=== PATIENT | female | born 1950 | race Caucasian/White ===

== ENCOUNTER 2020-07-12 17:48 | Emergency (ER) | payer BC, SELFPAY ==
--- NOTE | ~2020-07-12 | XR_ITS ---
EXAMINATION: XR soft tissue neck INDICATION: Resolved choking, foreign body sensation TECHNIQUE: AP and lateral views of the neck soft tissues are obtained on three radiographs. COMPARISON: None available FINDINGS: The neck soft tissues are unremarkable. No radiopaque foreign body is identified. There is a partially imaged, large bore right internal jugular catheter. Mild cervical spondylosis is noted. IMPRESSION: 1. Unremarkable neck radiographs. Reviewed, dictated and finalized at location A.
[2020-07-12 17:56] VITALS: BP 139/81; PULSE 83; RESP 18; TEMP 36.6; O2SAT 98
--- NOTE | 2020-07-12 17:56 | ED.GENADULT ---
HPI - General Adult General Chief complaint: Skin/Abscess/Foreign Body Stated complaint: AMB Source: patient, EMS and RN notes reviewed Mode of arrival: ambulatory Limitations: no limitations History of Present Illness HPI narrative: Patient was eating chicken earlier this evening. [place] like it got stuck in her throat. She eventually was able to swallow it down. She is no longer feeling like she is choking. She thought something might have been stuck in her throat. Onset (ago): minute(s) (30) Radiation: non-radiation Severity: moderate Quality: aching and dull Pain Consistency: now resolved Exacerbating factors: none Associated symptoms: denies other symptoms Related Data Home Medications Medication Instructions Recorded Confirmed aspirin 81 mg PO DAILY 07/12/20 07/12/20 levothyroxine 100 mcg PO DAILY 07/12/20 07/12/20 Allergies Allergy/AdvReac Type Severity Reaction Status Date / Time Sulfa (Sulfonamide Allergy Unknown Verified 07/12/20 18:04 Antibiotics) Review of Systems Review of Systems: All systems reviewed & are unremarkable except as noted in HPI and below PMFSH Past Medical History Medical History (Updated 07/12/20 @ 18:07 by Brian Laughlin MD) Hypothyroidism Renal failure Social History Social History (Updated 07/12/20 @ 17:58 by Brian Laughlin MD) Smoking status: Former smoker Alcohol intake: former Substance use: never Exam Const: General: healthy appearing, no acute distress and alert Nutritional Appearance: well nourished and thin Orientation/consciousness: patient oriented x3 HENMT: Head: normal to inspection Ears: external ears normal General nose exam: Normal external nose present Face and sinus: normal facial exam Mouth: Yes Normal oral and palatal mucosa present and Yes moist mucous membranes Teeth and gingiva: abnormal tooth and associated gingiva ( edentulous) Throat: posterior oropharynx normal and uvula midline Eyes: Conjunctivae: conjunctivae normal Pupils: Equal, round and reactive pupils present EOM: EOMs intact bilaterally Neck: Neck: normal visual inspection Resp: Effort & Inspection: normal respiratory effort Auscultation: clear to auscultation bilaterally Cardio: Rate: regular rate Rhythm: regular rhythm GI: GI Palp: Yes Soft to palpation Auscultation: normal bowel sounds Back/Spine/Pelvis: Cervical Spine: cervical ROM normal Thoracic/Lumbar Spine: thoraco-lumbar ROM normal Skin: General skin exam: normal color Rashes: no rashes Neuro: General: patient oriented x3, moves all extremities and no focal motor deficits Speech: normal speech ( able to drink fluids in the ER.) Gait exam (Neuro): Normal gait present Extrem: General: normal to inspection and no clubbing, cyanosis or edema Psych: Appearance: grossly normal and well kempt Mental Status: mental status grossly normal Affect: normal affect Attitude: cooperative Thought content: Yes Normal thought content present Course Vital Signs Vital signs: Vital Signs Temperature 36.6 C 07/12/20 17:56 Pulse Rate 83 07/12/20 17:56 Respiratory Rate 18 07/12/20 17:56 Blood Pressure 139/81 07/12/20 17:56 Pulse Oximetry 98 07/12/20 17:56 Temperature 36.6 C 07/12/20 17:56 Pulse Rate 83 07/12/20 17:56 Respiratory Rate 18 07/12/20 17:56 Blood Pressure 139/81 07/12/20 17:56 Pulse Oximetry 98 07/12/20 17:56 Medical Decision Making Vital Signs Vital Signs: Vital Signs Temperature 36.6 C 07/12/20 17:56 Pulse Rate 83 07/12/20 17:56 Respiratory Rate 18 07/12/20 17:56 Blood Pressure 139/81 07/12/20 17:56 Pulse Oximetry 98 07/12/20 17:56 Temperature 36.6 C 07/12/20 17:56 Pulse Rate 83 07/12/20 17:56 Respiratory Rate 18 07/12/20 17:56 Blood Pressure 139/81 07/12/20 17:56 Pulse Oximetry 98 07/12/20 17:56 Discharge Plan Discharge Clinical Impression: Choking due to food (regurgitated) Qualifiers: Encoun
== END 2020-07-12 18:50 | disposition home or self-care (01) ==
PROVIDERS: Emergency Provider Emergency Medicine; PCP Internal Medicine Cardiovascular Disease
DX: R09.89 Other specified symptoms and signs involving the circulatory and respiratory systems (principal); T17.320A Food in larynx causing asphyxiation, initial encounter; E03.9 Hypothyroidism, unspecified; Z87.891 Personal history of nicotine dependence
CPT/HCPCS: 70360; 99282; 99283

== ENCOUNTER 2023-06-19 12:05 | Outpatient (CLI) | payer MEDICARE, MEDICAID, SELFPAY ==
--- NOTE | ~2023-06-19 | US_ITS ---
EXAMINATION: US carotid duplex BI DATE: 06/19/2023 12:38 INDICATION: Syncope TECHNIQUE: Grayscale, color Doppler, and pulsed Doppler images of the cervical carotid arteries were obtained. The degree of vessel stenosis is placed in one of the following categories: normal, <50%, 5 0-69%, >=70% but less than near-occlusion, near-occlusion, or total occlusion. Note that percent sten osis relative to normal distal artery lumen diameter is indirectly measured from velocity measurement s as described by Janusz, et al. Radiology 2003; 229:340-346. Notes: Normal: Peak systolic velocity <125 centimeters/sec and no plaque <50%. Peak systolic velocity <125 ( EDV <40; ICA/CCA PSV ratio <2.0; used these factors only a tandem lesions or low cardiac output or co ntralateral disease) 50-69 %: PSV 125-230 (EDV 40-100; ratio 2-4) >= 70% but less than near occlusion: PSV greater than 230 (EDV > 100; ratio> 4.0) Near Occlusion: PSV that is variable; markedly narrowed lumen Occlusion: Absent flow on color/spectral Doppler and no lumen on joy scale. COMPARISON: None. FINDINGS: RIGHT: The right common carotid artery (CCA) peak systolic velocity (PSV) is 94 cm/s. The right internal car otid artery (ICA) PSV is 80 cm/s. The right ICA end-diastolic velocity (EDV) is 23 cm/s. The right IC A/CCA PSV ratio is 0.85. The external carotid artery (ECA) PSV is 73 cm/s. There is antegrade flow in the right vertebral artery. LEFT: The left CCA PSV is 91 cm/s. The left ICA PSV is 72 cm/s. The left ICA EDV is 31 cm/s. The left ICA/ CCA PSV ratio is 0.8. The ECA PSV is 66 cm/s. There is antegrade flow in the left vertebral artery. IMPRESSION: 1. Less than 50% stenosis in the right internal carotid artery by sonographic criteria. 2. Less than 50% stenosis in the left internal carotid artery by sonographic criteria. Reviewed, dictated and finalized at location B. IMPRESSION: 1. Less than 50% stenosis in the right internal carotid artery by sonographic steven nicholas. 2. Less than 50% stenosis in the left internal carotid artery by sonographic osmany her.
== END 2023-06-19 12:06 | disposition home or self-care (01) ==
LOC: CHSIMG 12:10
PROVIDERS: PCP Physician Assistant; Visit Provider Physician Assistant
DX: R55 Syncope and collapse (principal); I65.23 Occlusion and stenosis of bilateral carotid arteries
CPT/HCPCS: 93880

== ENCOUNTER 2023-07-08 08:18 | Outpatient (CLI) | payer MEDICARE, MEDICAID, SELFPAY ==
--- NOTE | 2023-07-08 08:37 | ECHO_ITS ---
Patient Info Name: Farzaneh Lopez Age: 73 years : 1950 Gender: Female Ht: 67 in Wt: 163 lbs BSA: 1.88 m2 HR: 76 bpm BP: 136 / 70 mmHg Heart Rhythm: Sinus Rhythm Technical Quality: Good Exam Date: 07/08/2023 8:29 AM Exam Location: [facility] Patient Status: Outpatient Admit Date: 07/08/2023 Staff Ordering Physician: Raymond Tijerina MD Right Of Way Appraiser: Donald Lira RDCS Attending Provider: Raymond Tijerina MD Referring Physician: Lilliana OLMSTEAD; Exam Type: CA echo doppler color flow Study Info Indications - PVC, PALPATION Complete two-dimensional, color flow and Doppler transthoracic echocardiogram is performed. Summary 1. Complete two-dimensional, color flow and Doppler transthoracic echocardiogram is performed. 2. Left ventricular chamber dimension is normal. 3. Left ventricular systolic function is normal, estimated at 55-60%. 4. The left ventricular diastolic function is abnormal. 5. E/e' 20 is elevated. 6. Left atrial chamber dimension is moderately enlarged. 7. There is mild aortic valve sclerosis. 8. There is mild aortic valve regurgitation. 9. There is mild mitral valve regurgitation. 10. There is trace tricuspid valve regurgitation. 11. No pulmonary hypertension, estimated pulmonary arterial systolic pressure is 31 mmHg. Left Ventricle E/e' 20 is elevated. Left ventricular chamber dimension is normal. Left ventricular systolic function is normal, estimated at 55-60%. The left ventricular diastolic function is abnormal. Right Ventricle Right ventricular systolic function is normal and with normal TAPSE 2.8 cm. Right ventricular chamber dimension is normal. Left Atria Left atrial chamber dimension is moderately enlarged. Right Atria Right atrial chamber dimension is normal. Aortic Valve The aortic valve is trileaflet. There is mild aortic valve sclerosis. There is no aortic valve stenosis. There is mild aortic valve regurgitation. Pulmonic Valve There is no pulmonic regurgitation. Mitral Valve There is no mitral valve stenosis. There is mild mitral valve regurgitation. Tricuspid Valve There is trace tricuspid valve regurgitation. No pulmonary hypertension, estimated pulmonary arterial systolic pressure is 31 mmHg. Pericardium/Pleural There is no pericardial effusion. Inferior Vena Cava Normal inferior vena cava with >50% collapse upon inspiration consistent with normal right atrial pressure, 5 mmHg. Aorta The aortic root size at the sinus of Valsalva is normal. Left Ventricular Outflow Tract Name Value Normal LVOT 2D LVOT Diameter 1.7 cm LVOT Doppler LVOT Peak Velocity 133 cm/s LVOT Peak Gradient 7 mmHg LVOT Mean Gradient 4 mmHg LVOT VTI 41 cm LVOT VTI/AV VTI Ratio 0.8 LVOT Stroke Volume 93 ml Pulmonic Valve Name Value Normal RVOT Doppler
== END 2023-07-08 08:19 | disposition home or self-care (01) ==
LOC: CHSIMG 08:21
PROVIDERS: PCP Physician Assistant; Visit Provider Specialist
DX: I49.3 Ventricular premature depolarization (principal); R00.2 Palpitations; I47.20 Ventricular tachycardia, unspecified; I08.3 Combined rheumatic disorders of mitral, aortic and tricuspid valves
CPT/HCPCS: 93306

== ENCOUNTER 2024-02-04 09:07 | Outpatient (CLI) | payer MEDICARE, MEDICAID, SELFPAY | END 2024-02-04 09:08 | disposition home or self-care (01) | LOC: ANHBWCAUD 09:08 | PROVIDERS: PCP Physician Assistant; Visit Provider Otolaryngology | DX: H61.23 Impacted cerumen, bilateral (principal); H90.6 Mixed conductive and sensorineural hearing loss, bilateral; J30.2 Other seasonal allergic rhinitis | CPT/HCPCS: 92557; 92567 ==

== ENCOUNTER 2025-04-18 08:14 | Emergency (ER) | payer MEDICARE, MEDICAID, SELFPAY ==
[2025-04-18] VITALS (22 sets, daily range): BP systolic 115–163; BP diastolic 57–94; PULSE 69–89; RESP 14–18; TEMP 37–37.7; O2SAT 95–100
--- NOTE | ~2025-04-18 | CT_ITS ---
Non-contrast CT scan of the Abdomen and Pelvis Clinical indication: Abdominal pain Technique: 2.5 mm axial scans were obtained through the abdomen and pelvis without intravenous or or al contrast. Dose reduction technique was used on this scan by utilizing automated exposure control a nd iterative reconstruction technique. The dose-length product (DLP) was 310.59 mGy-cm. Findings: Images through the lung bases reveal no abnormalities. Negative kidneys are markedly atrophic with bilateral renal cysts. No stones or hydronephrosis. The liver, spleen, pancreas, gallbladder, and adrenals appear normal. There is no aortic aneurysm. There is no evidence of bowel obstruction. There is wall thickening of sigmoid colon mild pericolonic inflammatory change. Images through the pelvis were performed. There is no evidence of ascites or lymphadenopathy. Urinary bladder unremarkable. No pelvic mass seen. Impression: Infectious/inflammatory colitis of the sigmoid colon versus possibly diverticulitis. Markedly atrophic wilton kidneys. Reviewed, dictated and finalized at [facility]. Impression: Infectious/inflammatory colitis of the sigmoid colon versus possibly diverticul itis. Markedly atrophic wilton kidneys.
--- NOTE | ~2025-04-18 | XR_ITS ---
Clinical Indication: Abdominal pain PA and lateral views of the chest: Comparison: 04/27/2009 Findings: The lungs are clear, without evidence of focal consolidation or pleural effusion. Cardiome diastinal silhouette is within normal limits. Bones and soft tissues are unremarkable. Impression: Normal chest. Reviewed, dictated and finalized at location . Impression: Normal chest.
--- OUTSIDE RECORDS SUMMARY | 2025-04-18 08:22 | XMS_ITS | Encounter Summary ---
Author Organization [facility] Address [facility] [place] [address] Care Team Providers Care Reclamation Engineer Name Role Phone Chalo Thakkar Unavailable [phone] Tereso Donaldson MD Primary Care Provider [phone] Leona Godwin MD Unavailable Unavailabl e Cheko Pulido MD Unavailable [phone] Rigoberto Chinchilla MD Unavailable [phone] Mariluz Owens ANP-BC Unavailable [phone] Jayla RidleyC Unavailable [phone] Encounter Details Date Type Department Care Team (Late st Contact Info) Description 06/08/2022 Results Notification [facility] [address] [place] [address] Ricardo Villeda MD Social History Tobacco Use Types Packs/Day Years Used Date Smoking Tobacco: Former Cigarettes Smokeless Tobacco: Former Comments:quit 50 years ago Alcohol Use Standard Drinks/Week Comments Yes 0 (1 standard drink = 0.6 oz pur e alcohol) Comments No Sex and Gender Information Value Date Recorded Sex Assigned at Female 02/23/2020 9:37 PM CDT Legal Sex Female 7:57 PM CDT Gender Identity Female 02/23/2020 9:37 PM CDT Sexual Orientation Straight 02/23/2020 9: 37 PM CDT COVID-19 Exposure Response Date Recorded In the last 10 days, have yo u been in contact with someone who was confirmed or suspected to have Coronavirus/COVID-19? Unable to assess 05/23/2022 3:02 PM CDT documented as of this encounter Functional Status * RETIRED Are you deaf or do you have serious difficulty hearing Answer Date of Assessment Author Status No 08/10/2020 8:08 AM CLIENT DELIVERY MANAGER Activ e * RETIRED Are you blind or do you have serious difficulty seeing, even when wearing glasses? Answer Date of Assessment Author Status 05/10/2020 8:42 PM CDT Activ e * Do you have serious difficulty walking or climbing stairs? Answer Date of Assessment Author Status No 05/10/2020 8:42 PM CDT John Garcia R N Active * Do you have difficulty dressing or bathing? Answer Date of Assessment Author Status No 05/10/2020 8:42 PM CDT John Garcia R N Active * Because of a physical, mental, or emotional condition, do you have difficulty doing errands alone such as visiting a doctor's office or shopping? Answer Date of Assessment Author Status No 05/10/2020 8:42 PM CDT John Garcia R N Active documented as of this encounter Mental Status * Because of a physical, mental, or emotional condition, do you have serious difficulty concentrating, remembering, or making decisions? Answer Entry Date Author Status No 05/10/2020 8:42 PM CDT John Garcia R N Active documented in this encounter Progress Notes * Ricardo Villeda MD - 06/08/2022 8:24 PM CDT Images from the original note were not included. Contacted by [employer] about recurrent Non-sustained ventricular tachycardia (NSVT) Patient not on beta amelia/CCB/antiarrhythmics Structurally normal heart otherwise Not seen by EP - awaiting Cheko Pulido MD consultation Due to high burden, I have advised the monitoring company to direct the patient to nearest emergency room Ricardo Villeda MD Clinical Cardiac Factory Engineer [facility] documented in this encounter Plan of Treatment Not on file documented as of this encounter Visit Diagnoses Not on filedocumented in this encounter Additional Health Concerns Infection Onset Date Last Indicated Resolved Time COVID-19 Rule Out 10/10/2023 10/10/2023 10/10/2023 12:25 PM CLIENT DELIVERY MANAGER documented as of this encounter Care Teams Reclamation Engineer Relationship Specialty Start Date End Date Tereso Donaldson MD [address] [place] [phone] PCP - General FAMILY PRACTICE 05/18/22 Chalo Thakkar PA [address] [place] [phone] Physician Correspondence School Instructor PHYSICIAN MOBILE HOMES REPAIRER 10/11/21 Leona Godwin MD [address] [place] [phone] Consulting Physician CARDIOVASCULAR DISEASE 05/18/2205/20 Cheko Pulido MD [address] [place] [address] EP Wallpaperer CLINICAL CARDIAC ELECTROPHYSIOLOGY 05/30/22 Rigoberto Chinchilla MD [address] [place] [address] INTERVENTIONAL CARDIOLOGY 01/23/2412/06 Mariluz Owens ANP- [address] [place] [phone] Nurse Practitioner NURSE PRACTITIONER ADULT HEALTH 01/23/24 Jayla Ridley PA-C [address] [place] [address] Referring Physician PHYSICIAN MOBILE HOMES REPAIRER 08/29/24 documented as of this encounter
--- OUTSIDE RECORDS SUMMARY | 2025-04-18 08:24 | XMS_ITS | Clinical Summary ---
Author Organization [facility] Address [address] [facility], [address] [phone] Phone Care Team Providers Care Auto Seat Cover Installer Name Role Phone Natty Aviles MD Primary Care Provider [phone] Allergies Active Allergy Reactions Criticality Noted Date Comments Nylon Itching 04/08/2018 Sulfa Antibiotics Itching 04/08/2018 Medications fluticasone (FLONASE) 50 MCG/ACT Suspension 1 02/11/2018 Active levothyroxine (SYNTHROID) 112 MCG Tablet 1 04/05/2018 Active metoprolol tartrate (LOPRESSOR) 50 MG Tablet 1 02/11/2018 Active Active Problems Problem Noted Date Diagnosed Date Retracted ear drum, right 04/08/2018 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, right 04/08/2018 Tinnitus of right ear 04/08/2018 Chronic eczematous otitis externa of left ear Acquired stenosis of external ear canal, left Malocclusion of teeth 04/08/2018 TMJ (temporomandibular joint syndrome) 8 Other complicated headache syndrome 04/08/2018 Social History Tobacco Use Types Packs/Day Years Used Date Smoking Tobacco: Former Cigarettes 0.3 5 Smokeless Tobacco: Never Alcohol Use Standard Drinks/Week Comments No 0 (1 standard drink = 0.6 oz pur e alcohol) Comments Unknown Sex and Gender Information Value Date Recorded Sex Assigned at Not on file Legal Sex Female 3:00 PM CDT Gender Identity Not on file Sexual Orientation Not on file Occupation Industry Job Start Date Job End Date unemployed Not on file Not on file Not on file Last Filed Vital Signs Vital Sign Reading Time Taken Comments Blood Pressure 128/84 04/08/2018 2:33 PM CDT Pulse 78 04/08/2018 2:33 PM CDT Temperature - - Respiratory Rate 14 04/08/2018 2:33 PM CDT Oxygen Saturation 98% 04/08/2018 2:33 PM CDT Inhaled Oxygen Concentration - - Weight 89.4 kg (197 lb) 04/08/2018 2:33 PM CDT Height 172.7 cm (5' 8) 04/08/2018 2:33 PM CDT Body Mass Index 29.95 04/08/2018 2:33 PM CDT Plan of Treatment Health Maintenance Due Date Last Done Comments Hepatitis C Virus (HCV) Screening 1950 TdaP Immunization 1950 Cologuard 02/01/1997 Colonoscopy 02/01/1997 Colorectal Cancer Screening 02/01/1997 Immunochemical Fecal Occult Blood 02/01/1997 Pneumococcal Immunization (5 0+ years) (1 of 1 - PCV) 02/01/2002 Zoster Immunization (1 of 2) 02/01/2002 SARS-COV-2 Immunization (2 - season) 2024 12/29/2020 Influenza Immunization (#1) 2025 Respiratory Syncytial Virus (RSV) Immunization (Adult) (1 - 1-dose 75+ series) 02/01/2027 Hepatitis B Immunization Aged Out No longer eligible based on patient's age to complete this topic Human Papillomavirus (HPV) Immunization Aged Out No longer eligible b ased on patient's age to complete this topic Meningococcal Immunization (ACWY) Aged Out No longer eligible based on patient's age to complete this topic Rotavirus Immunization Aged Out No lo nger eligible based on patient's age to complete this topic Insurance [facility] Care Teams Auto Seat Cover Installer Relationship Specialty Start Date End Date Natty Aviles MD [address] [place] [address] PCP - General Family Medicine 04/08/18
--- OUTSIDE RECORDS SUMMARY | 2025-04-18 08:24 | XMS_ITS | Encounter Summary ---
Author Organization [facility] Address [address] [place] [address] Care Team Providers Care Dehydrogenation Converter Helper Name Role Phone Chalo Thakkar Unavailable [phone] Tereso Donaldson MD Primary Care Provider [phone] Leona Godwin MD Unavailable Unavailabl e Cheko Pulido MD Unavailable [phone] Rigoberto Chinchilla MD Unavailable [phone] Mariluz Owens ANP-BC Unavailable [phone] Jayla Ridley PA-C Unavailable [phone] Encounter Details Date Type Department Care Team (Late st Contact Info) Description 08/31/[address] [facility] Lab Pre/Post [address] [place], [place] [phone] New Villalobos MD [address] [facility], [address] [place] [address] Social History Tobacco Use Types Packs/Day Years [...] Recorded In the last 10 days, have santhosh u been in contact with someone who was confirmed or suspected to have Coronavirus/COVID-19? No / Unsure 09/03/2022 3:54 PM BLOOD TESTER FOWL documented as of this encounter Functional Status * RETIRED Are you deaf or do you have serious difficulty hearing Answer Date of Assessment Author Status No 08/10/2020 8:08 AM BLOOD TESTER FOWL Activ e * RETIRED Are you blind [...] Status No 05/10/2020 8:42 PM CDT John Garcia, R N Active documented in this encounter Plan of Treatment Not on file documented as of this encounter Visit Diagnoses Not on filedocumented in this encounter Additional Health Concerns Infection Onset Date Last Indicated Resolved Time COVID-19 Rule Out 10/10/2023 10/10/2023 10/10/2023 12:25 PM BLOOD TESTER FOWL documented as of this encounter Care Teams Dehydrogenation Converter Helper Relationship Specialty Start Date End Date Tereso Donaldson MD [address] [place] [phone] PCP - General FAMILY PRACTICE 05/18/22 Chalo Thakkar PA [address] [place] [phone] Physician Wet Wash Assembler PHYSICIAN CONTRACT ENGINEER 10/11/21 Leona Godwin MD [address] [place] [phone] Consulting Physician CARDIOVASCULAR DISEASE 05/18/2205/20 Cheko Pulido MD [address] [place] [address] EP General Partner CLINICAL CARDIAC ELECTROPHYSIOLOGY 05/30/22 Rigoberto Chinchilla MD [address] [place] [phone] INTERVENTIONAL CARDIOLOGY 01/23/2412/06 Mariluz Owens [facility]- [address] [place] [phone] Nurse Practitioner NURSE PRACTITIONER ADULT HEALTH 01/23/24 Jayla Ridley PA-C [address] [place] [phone] Referring Physician PHYSICIAN CONTRACT ENGINEER 08/29/24 documented as of this encounter
--- OUTSIDE RECORDS SUMMARY | 2025-04-18 08:24 | XMS_ITS | Clinical Summary ---
Author Organization [facility] Address [address] [place] [address] Care Team Providers Care Burnt Lime Drawer Name Role Phone Chalo Larios Unavailable [phone] Tereso Donaldson MD Primary Care Provider [phone] Cheko Pulido MD Unavailable [phone] Mariluz Owens ANP-BC Unavailable +- [phone] Jayla Ridley PA-C Unavailable [phone] Allergies Active Allergy Reactions Criticality Noted Date Comments Nylon Itching 04/08/2018 Penicillins Rash Low 05/11/2020 Sulfa Antibiotics Rash,Itching Low 04/08/2018 Suture Material Rash Low 08/05/2020 NYLON Medications lidocaine-prilo abad cream Apply topically as needed. 1 Active levothyroxine (SYNTHROID) 137 MCG tablet Take 1 tablet (137 mcg total) by mouth daily. 3 Active midodrine (PROAMATINE) 5 MG tablet Take 1 tablet (5 mg total) by mouth daily. 4 Active NEPHRO-STORM 0.8 MG Tab tablet Take 1 tablet by mouth daily. 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 ESRD (end stage renal disease) ([facility]) 05/10/2020 Hyperparathyroidism due to e nd stage renal disease on dialysis ([facility]) 04/27/2020 Acquired hypothyroidism 04/27/2020 Elevated troponin 02/23/2020 Acute renal failure (ARF) 02/23/2020 Palpitations 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HHS/HCC) Lupus Mitral regurgitation Encounters Date Type Department Care Team Description 02/16/2025 11:57 AM CDT - 02/16/2025 12:29 PM CDT Emergency [facility] [address] [place] [address] Jin Alejandro FNP Ear Problem Discharge Disposition: Home or Self Care (Routine Discharge) 02/16/2025 Travel 02/06/2025 10:45 AM CDT - 02/06/2025 12:49 PM CDT Emergency [facility] [address] [place] [address] Mert Cifuentes MD Hearing Problem Discharge Disposition: Home or Self Care (Routine Discharge) 02/06/2025 Travel from Last 3 Months Family History Medical History Relation Comments Heart Disease Father Breast Cancer Maternal Aunt Breast Problems Mother Heart Disease Mother Breast Cancer Paternal Aunt Relation Status Comments Father Maternal Aunt Alive Maternal Grandfather Maternal Grandmother Mother Paternal Aunt Alive Paternal Grandfather Paternal Grandmother Social History Tobacco Use Types Packs/Day Years Used Date Smoking Tobacco: Former Cigarettes Smokeless Tobacco: Former Tobacco Cessation:Counseling Given: Not Answered Comments:quit 50 years ago Alcohol Use Standard Drinks/Week Comments Yes 0 (1 standard drink = 0.6 oz pur e alcohol) Comments No Sex and Gender Information Value Date Recorded Sex Assigned at Female 02/23/2020 9:37 PM CDT Legal Sex Female 7:57 PM CDT Gender Identity Female 02/23/2020 9:37 PM CDT Sexual Orientation Straight 02/23/2020 9: 37 PM CDT Last Filed Vital Signs Vital Sign Reading Time Taken Comments Blood Pressure 161/79 02/16/2025 11:54 AM CDT Pulse 104 02/16/2025 11:54 AM CDT Temperature 36.6 C (97.9 F) 02/16/2025 11:54 AM CDT Respiratory Rate 20 02/16/2025 11:5 4 AM CDT Oxygen Saturation 98% 02/16/2025 11: 54 AM CDT Inhaled Oxygen Concentration - - Weight 76.2 kg (167 lb 15.9 oz) 025 11:54 AM CDT Height 171.5 cm (5' 7.5) 02/06/2025 10 :41 AM CDT Body Mass Index 25.92 02/06/2025 10:41 AM CDT Plan of Treatment Health Maintenance Due Date Last Done Comments Hepatitis C 02/01/1970 DTaP, Tdap and Td Vaccines ( 1 - Tdap) 02/01/1971 Pneumococcal Vaccine: 50+ Years (1 of 2 - PCV) 02/01/1971 Zoster Vaccines (1 of 2) 02/01/2002 RSV Immunization or 60+ Years (1 - Risk 60-74 years 1-dose series) 2012 Annual Medicare Wellness Visit 02/01/2017 COVID-19 Vaccine (3 - 2023-2 5 season) 2024 08/25/2022, 12/29/2020 Mammogram Screening 08/15/2024 08/15/2022 Colorectal Cancer Screening Colonoscopy (10 Years) 09/08/2031 09/08/2021, 09/08/2021 Colorectal Cancer Screening FIT/FOBT (1 Year) Discontinued 04/22/2021 Dexa Scan (General) Completed 08/15/2022 Meningococcal B Vaccine Aged Out No l onger eligible based on patient's age to complete this topic Meningococcal Vaccine Aged Out No brock jacob eligible based on patient's age to complete this topic RSV Immunizations Under 20 Months Aged Out No longer eligible based on patient's age to complete this topic Medical Devices Implanted Type Area Cooler Tender Device Identifier Shelf Expiration Date Model / Serial / Lot Cook Tornado Left Forearm Vein-12/19/2020 Implanted:Qty: 1 on 12/19/2020 by Rafa Villagomez MD Coil Arm [employer] 08/11/2024 [id number] / / [id number] Cook Tornado Left Forearm- 021 Implanted:Qty: 1 on 12/19/2020 by Rafa Villagomez MD Coil Left: Arm [employer] 04/17/2022 [id number] / / [id number] Cook Tornado Left Forearm Vein-12/19/2020 Implanted:Qty: 1 on 12/19/2020 by Rafa Villagomez MD Coil Left: Arm [employer] 08/18/2024 [id number] / / [id number] Daron Torando Left Forearm Vein-12/19/2020 Implanted:Qty: 1 on 12/19/2020 by Rafa Villagomez MD Coil Left: Arm [employer] - A Abyz 06/24/2023 [id number] / / [id number] Procedures Procedure Name Priority Date/Time Associated Diagnosis Comments BONE DENSITY/DEXA Routine 08/15/2022 7:0 7 PM MEASUREMENT ANALYST Postmenopausal MG SCREENING W BRANDEN BRYANT DIGI Routine 08/15/2022 3:04 PM MEASUREMENT ANALYST Visit for screening mammogram COLONOSCOPY 09/08/2021 10:19 AM MEASUREMENT ANALYST OCCULT BLOOD, FECES STAT 04/22/2021 1 :32 PM CDT from Last 3 Months or Most Recently Relevant to Health Maintenance Results * BONE DENSITY/DEXA (08/15/2022 7:07 PM MEASUREMENT ANALYST) Anatomical Region Laterality Modality Bone Bone Density 08/15/2022 7:07 PM MEASUREMENT ANALYST Impressions 08/15/2022 7:08 PM MEASUREMENT ANALYST Impression: Osteoporosis. Ordered By: CHALO LARIOS Interpreted By: Malvin Hart DO, 08/15/2022 7:07 PM Narrative 08/15/2022 7:08 PM MEASUREMENT ANALYST Examination: DEXA Bone densitometry Clinical history: Postmenopausal. Osteoporosis screening. Technique: DEXA bone mineral density evaluation was performed in the AP projection over the lumbar spine and over both hips in the AP projection utilizing standard imaging techniques. COMPARISON: None. Assessment: The BMD measured at the AP spine L1-L4 is 0.826 g/cm2 with a T-score of -2.0 and a Z-Score of 0.1. The BMD of the total left femur is 0.588 g/cm2, the femoral neck measures 0.546 g/cm2, with a T-score of -2.9 and a Z-Score of -1.4. The BMD of the total right femur is 0.649 g/cm2, the femoral neck measures 0.612 g/cm2, with a T-score of -2.4 and a Z-Score of -0.9. Based upon the above measurements, the patient has osteoporosis. The patient has osteoporosis. The fracture risk is high. Based on these results, a followup exam is recommended in 2 years or sooner if clinically indicated. Procedure Note Malvin Hart DO - 08/15/2022 Examination: DEXA Bone densitometry Clinical history: Postmenopausal. Osteoporosis screening. Technique: DEXA bone mineral density evaluation was performed in the APprojection over the lumbar spine and over both hips in the AP projectionutilizing standard imaging techniques. COMPARISON: None. Assessment: The BMD measured at the AP spine L1-L4 is 0.826 g/cm2 with a T-score of-2.0 and a Z-Score of 0.1. The BMD of the total left femur is 0.588 g/cm2, the femoral neck measures0.546 g/cm2, with a T-score of -2.9 and a Z-Score of -1.4. The BMD of the total right femur is 0.649 g/cm2, the femoral neck measures0.612 g/cm2, with a T-score of -2.4 and a Z-Score of -0.9. Based upon the above measurements, the patient has osteoporosis. The patient has osteoporosis. The fracture risk is high. Based on these results, a followup exam is recommended in 2 years orsooner if clinically indicated. Impression: Osteoporosis. Ordered By: CHALO LARIOS Interpreted By: Malvin Hart DO, 08/15/2022 7:07 PM us Chalo COSME DEXA Final Result * MG SCREENING W BRANDEN BRYANT DIGI (08/15/2022 3:04 PM MEASUREMENT ANALYST) Anatomical Region Laterality Modality Breast Bilateral Mammography 08/20/2022 4:46 PM MEASUREMENT ANALYST Narrative 08/20/2022 4:48 PM MEASUREMENT ANALYST Examination: Digital screening mammogram with CAD. Clinical history: Asymptomatic patient presents for routine screening. Comparison: 10/03/2015. Technique: Bilateral digital mammograms. The exam was interpreted with the use of a computer-aided detection (CAD) system. Additional 3-D tomosynthesis images were acquired. Tissue density: The breast tissue is heterogeneously dense. Findings: The breast tissue is heterogeneously dense. The dense tissue may obscure some lesions mammographically. Benign-appearing calcification noted. No suspicious mass, microcalcification or area of architectural distortion can be identified. From a mammographic standpoint, routine followup in one year would seem adequate. IMPRESSION: No suspicious change since the previous exams. Recommendation: 1: Routine Screening Bilateral in 1 Year Assessment: ACR BI-RADS 2 - BENIGN FINDING(S) Ordered By: CHALO LARIOS Interpreted By: Keshav Banks MD, 08/20/2022 4:46 PM Chalo Larios PA MAMMO Final Result * COLONOSCOPY (09/08/2021 10:19 AM MEASUREMENT ANALYST) Yusuf Bill MD GI PROCEDURE ORDERABLES Final Result * OCCULT BLOOD, FECES (04/22/2021 1:32 PM CDT) OCCULT BLOOD FECAL NEGATIVE NEGATIVE 04/22/2021 1:43 PM CDT [facility] STOOL SPECIMEN / Unknown 04/22/2021 1:32 PM CDT Dejon Cheung MD BODY FLUIDS AND STOOLS ORDERABL ES Final Result [facility] [address] [place] [address], from Last 3 Months or Most Recently Relevant to Health Maintenance Insurance Member Subscriber Plan / Payer (Ef fective 2022-Present) Name:Farzaneh Lopez Relation to Subscriber:Self Name:Jessica Farzaneh Nikki Payer ID:Not on file Group ID:Not on file Type:Not on file Address: [address] [facility] MEDICAID Advance Directives * Full Code (Latest Code Status on File) Date Activated Date Inactivated Comments 12/25/2024 3:56 PM 12/27/2024 2:26 PM * Full Code Date Activated Date Inactivated Comments 05/11/2020 2:23 AM 05/11/2020 5:03 PM * Full Code Date Activated Date Inactivated Comments 02/23/2020 5:34 PM 03/03/2020 7:30 PM Care Teams Burnt Lime Drawer Relationship Specialty Start Date End Date Tereso Donaldson MD [address] [place] [phone] PCP - General FAMILY PRACTICE 05/18/22 Chalo Larios PA [address] [place] [phone] Physician Title Clerk Automobile PHYSICIAN CEMENT CONTRACTOR 10/11/21 Cheko Pulido MD [address] [place] [address] EP Upsetter Setter Up CLINICAL CARDIAC ELECTROPHYSIOLOGY 05/30/22 Mariluz Owens, [facility]- [address] [place] [id number] Nurse Practitioner NURSE PRACTITIONER ADULT HEALTH 01/23/24 Jayla Ridlye PA-C [address] [place] [address] Referring Physician PHYSICIAN CEMENT CONTRACTOR 08/29/24
--- NOTE | 2025-04-18 08:40 | ECG_ITS ---
Test Date: 2025-04-18 08:51:53 Measurements Intervals [place] Rate: 71 P: 30 ME: 144 QRS: -16 QRSD: 78 T: 37 QT: 372 QTc: 406 Interpretive Statements SINUS RHYTHM MINIMAL ST DEPRESSION [0.025+ mV ST DEPRESSION] ABNORMAL ECG Electronically Signed On 04-18-2025 11:38:11 CDT by Rogelio Velasquez M.D.
--- NOTE | 2025-04-18 08:40 | ED.ABDPAIN ---
HPI - Abdominal Pain General Chief Complaint: Abdominal Pain Stated Complaint: abdominal cramping Time Seen by Provider: 04/18/25 08:24 Source: patient and family Mode of arrival: ambulatory Limitations: no limitations History of Present Illness HPI narrative: patient is a 75-year-old female with lower abdominal pain for the past few days. Patient is a poor historian. She said it is cramping and bloating sensation. She is end-stage renal disease with hemodialysis 3 times a week. She had a colonoscopy in February of 2025 that showed 2 polyps that were removed. She also had some dark stool after taking Pepto-Bismol once this past week as well. patient has chronic stool changes to include mucus. No nausea vomiting or diarrhea. She does make urine. MD elicited complaint: abdominal pain Pertinent past history: other ( Colon polyps 2024, end-stage renal disease/ hemodialysis 3 times a week) Onset (ago): day(s) ( 3) Pain Consistency: intermittent Location: RLQ and suprapubic Severity: mild Pain scale (0-10): 3 Quality: cramping and fullness Radiation: none Migration to: no migration Exacerbating factors: nothing Relieving factors: nothing Context: confirms other ( patient has lower abdominal pain for the past few days with associated chronic stool changes) Associated symptoms: hematochezia ( Small amount x1 this past week) Treatments prior to arrival: other ( none) Related Data Home Medications ?Medication ?Instructions ?Recorded ?Confirmed ?Last Taken ?Type aspirin 81 mg tablet,delayed 81 mg PO DAILY 07/12/20 02/23/25 Unknown History release calcium carbonate (Tums) 200 mg PO BID 01/14/24 02/23/25 Unknown History levothyroxine 100 mcg tablet 125 mcg PO DAILY 01/14/24 02/23/25 Unknown History Allergies Allergy/AdvReac Type Severity Reaction Status Date / Time nylon Allergy Intermediate Rash Verified 04/18/25 08:31 penicillin G Allergy Intermediate Rash Verified 04/18/25 08:31 Sulfa (Sulfonamide Allergy Rash Verified 04/18/25 08:31 Antibiotics) Review of Systems Review of Systems: All systems reviewed & are unremarkable except as noted in HPI and below Constitutional: Constitutional: Reports no additional constitutional complaints Eyes: Eyes: Reports no additional eye complaints ENT: Reports system reviewed and no additional complaints, except as documented Cardiovascular: Cardiovascular: Reports no additional cardiovascular complaints Respiratory: Respiratory: Reports no additional respiratory complaints Gastrointestinal: Gastrointestinal: Reports no additional gastrointestinal complaints Genitourinary: Genitourinary: Reports no additional female genitourinary complaints Musculoskeletal: Musculoskeletal: Reports no additional musculoskeletal complaints Integumentary/Breasts: Skin/Breast: Reports system reviewed and no additional complaints, except as docu Neurologic: Reports system reviewed and no additional complaints, except as documented Psychiatric: Psychiatric: Reports no additional psychiatric complaints Endocrine: Endocrine: Reports no additional endocrine complaints Hematologic/Lymphatic: Hematologic/Lymphatic: Reports no additional hematologic/lymphatic complaints Allergic/Immunologic: Allergic/Immunologic: Reports no additional allergic/immunologic complaints [facility] Past Medical History Medical History Hypothyroidism Renal failure Family History Family History Father Hypertension Heart disease Mother Carcinoma of colon Hypertension Social History Social History Social History: Caffeine-daily Smoking status: Former smoker Smoking end date: 10/07/08 Alcohol intake: current Alcohol use details: Occasionally Substance use: never Substance use type: does not use Do You Feel Safe in your Home?: Yes Lack of Transportation: No Lack of Food: Never True Current Housing: Decline to Answer Concerned About Future Housing: Decline to Answer Difficulty Paying Gas/Electric Bills: Decline to Answer Difficulty Paying for Meds: Decline to Answer Currently Unemployed: Decline to Answer Education: Decline to Answer Difficulty w/ Childcare or Family Care: Decline to Answer Exam Const: General: healthy appearing Nutritional Appearance: well nourished Orientation/consciousness: patient oriented x3 Limitations: no limitations Other: patient has baseline tangential type thinking but remembers her past history and events; baseline mental status per family HENMT: Head: normal to inspection Ears: external ears normal Face/Nose/Sinus: Normal external nose present Eyes: Conjunctivae: conjunctivae normal Pupils: Equal, round and reactive pupils present EOM: EOMs intact bilaterally Neck: Neck: normal visual inspection Chest: Chest palpation & inspection: normal inspection of the chest Resp: Effort & Inspection: normal respiratory effort and not labored Auscultation: clear to auscultation bilaterally and no crackles Cardio: Rate: regular rate Rhythm: regular rhythm Heart sounds: no murmurs GI: Inspection: non-distended GI Palp: Yes Soft to palpation and Yes Tenderness to palpation present (GI) ( suprapubic and right lower quadrant) Auscultation: normal bowel sounds : General: No bladder normal to palpation ( tender) Back/Spine/Pelvis: Back: no CVA tenderness Skin: General skin exam: normal color Rashes: no rashes Wounds: no wounds Neuro: General: patient oriented x3, moves all extremities, no meningeal signs, no focal motor deficits and CN's II-XI intact bilaterally Cranial nerves: Yes Nystagmus not present Speech: normal speech Gait exam (Neuro): Normal gait present Other: fast exam negative Extrem: General: normal to inspection Psych: Mental Status: mental status grossly normal Affect: normal affect Attitude: cooperative Course Vital Signs Vital signs: Vital Signs Temperature 37.7 C H 04/18/25 08:14 Pulse Rate 82 04/18/25 08:14 Respiratory Rate 16 04/18/25 08:14 Blood Pressure 136/81 04/18/25 08:14 Pulse Oximetry 96 04/18/25 08:14 Oxygen Delivery Room Air 04/18/25 08:14 Temperature 37.7 C H 04/18/25 08:14 Pulse Rate 71 04/18/25 10:16 Respiratory Rate 14 04/18/25 10:16 Blood Pressure 146/62 H 04/18/25 10:16 Pulse Oximetry 97 04/18/25 10:16 Oxygen Delivery Room Air 04/18/25 08:14 MDM - Abdominal Pain MDM Narrative Medical decision making narrative: patient is a 75-year-old female with abdominal pain for the past few days. We will do an abdominal workup at this time. Lab Data Attestation: I reviewed the patient's lab results. 04/18/25 08:49 04/18/25 08:49 Labs: Lab Results 04/18/25 Range/Units 08:49 WBC 8.3 (4.8-10.8) K/mm3 RBC 3.71 L (4.20-5.40) M/mm3 Hgb 10.8 L (11.7-13.8) g/dL Hct 35.2 (35.0-42.0) % MCV 94.9 (78.0-102.0) fL MCH 29.1 (27.0-31.0) pg MCHC 30.7 L (32-36) g/dL RDW 15.1 H (11.6-14.4) % Plt Count 133 L (150-420) K/mm3 MPV 10.9 (9.2-11.8) fl Immature Gran % (Auto) 0.5 H (0.0-0.0) % Neut % (Auto) 76.1 H (50.0-70.0) % Lymph % (Auto) 12.7 L (18.0-42.0) % [place] % (Auto) 9.1 (2.0-11.0) % Eos % (Auto) 1.2 (1.0-6.0) % Baso % (Auto) 0.4 (0.0-1.0) % Lymph # (Auto) 1.06 L (1.10-4.50) K/mm3 [place] # (Auto) 0.76 (0.10-0.90) K/mm3 Eos # (Auto) 0.10 (0.02-0.50) K/mm3 Baso # (Auto) 0.03 (0.00-0.10) K/mm3 Abs Immat Gran (auto) 0.04 H (0.00-0.00) K/mm3 Absolute Neuts (auto) 6.33 (1.70-7.20) K/mm3 Absolute Nucleated RBC 0.00 (0.00-0.00) K/mm3 Nucleated RBC % 0.0 (0-0.0) % PT 10.4 (9.50-12.1) Seconds INR 0.9 APTT 27.6 (23.9-30.70) Sec Sodium 138 (137-145) mmol/L Potassium 3.7 (3.4-5.0) mmol/L Chloride 104 (98-107) mmol/L Carbon Dioxide 29 (22-30) mmol/L Anion Gap 5 (4-12) mmol/L BUN 26 H (7-17) mg/dL Creatinine 7.40 H (0.7-1.0) mg/dL Estim Creat Clear Calc Not Reportable Estimated GFR 5 L (59 - ) Glucose 92 (65-110) mg/dL Calculated Osmolality 290 (285-295) mOsm/kg Calcium 8.5 (8.4-10.2) mg/dL Total Bilirubin 0.5 (0.2-1.3) mg/dL AST 25 (14-36) U/L ALT 11 (6-35) U/L Alkaline Phosphatase 106 (38-126) U/L Troponin I 0.031 (0.000-0.034) ng/mL Total Protein 5.9 L (6.3-8.2) g/dL Albumin 3.3 L (3.5-5.1) g/dL Lipase 52 (23-300) U/L Imaging Data Attestation: I personally reviewed and interpreted this imaging study as follows: Radiologist's impression: ITS Impressions Abdomen/Pelvis CT 04/18/25 10:22 Impression: Infectious/inflammatory colitis of the sigmoid colon versus possibly diverticulitis. Markedly atrophic [place] kidneys. Chest X-Ray 04/18/25 10:23 Impression: Normal chest. ECG Data EKG #1: Attestation: I personally reviewed and interpreted this ECG as follows: ECG completion date: 04/18/25 ECG completion time: 09:00 normal rate, sinus rhythm, no ectopy, non-specific ST changes, ST depression, normal QRS, normal QT and left axis Discharge Plan Discharge Clinical Impression: Diverticulitis Renal failure Qualifiers: Renal failure chronicity: chronic Chronic kidney disease stage: on chronic dialysis Qualified Code(s): N18.6 - End stage renal disease Patient Disposition: Home Condition: Stable Instructions: Antibiotic Form, Diverticulitis (ED) Patient Language: Cambodian Prescriptions: New metronidazole 500 mg tablet 500 mg PO TID 10 Days Qty: 30 0RF ciprofloxacin HCl [Cipro] 250 mg tablet 250 mg PO BID 7 Days Qty: 14 0RF No Action aspirin 81 mg Tablet,Delayed Release (Dr/Ec) 81 mg PO DAILY levothyroxine 100 mcg tablet 125 mcg PO DAILY calcium carbonate [Tums] 200 mg calcium (500 mg) tablet,chewable 200 mg PO BID Follow-up/Referrals: Ariane,YADIRA Isabel [Primary Care Provider] - Time of Disposition: 10:26
[2025-04-18 08:54] LABS: Hematocrit 35.2 % (35.0-42.0); Hemoglobin 10.8 g/dL (11.7-13.8); Immature Granulocyte Percent A 0.5 % (0.0-0.0); Lymphocytes Absolute Auto 1.06 K/mm3 (1.10-4.50); Mean Corpuscular HGB Conc 30.7 g/dL (32-36); Mean Corpuscular Hemoglobin 29.1 pg (27.0-31.0); Mean Corpuscular Volume 94.9 fL (78.0-102.0); Nucleated Red Blood Cells Absolute Auto 0.00 K/mm3 (0.00-0.00); Nucleated Red Blood Cells Perc 0.0 % (0-0.0); Platelet Count Result 133 K/mm3 (150-420); Red Blood Count 3.71 M/mm3 (4.20-5.40); White Blood Count 8.3 K/mm3 (4.8-10.8)
--- OUTSIDE RECORDS SUMMARY | 2025-04-18 08:59 | XMS_ITS | Encounter Summary ---
Author Organization [facility] Address [facility] [place] [address] Care Team Providers Care Client Retention Specialist Name Role Phone Chalo Thakkar Unavailable [phone] Tereso Donaldson MD Primary Care Provider [phone] Leona Godwin MD Unavailable Unavailabl e Cheko Pulido MD Unavailable [phone] Rigoberto Chinchilla MD Unavailable [phone] Mariluz Owens ANP-BC Unavailable [phone] Jayla RidleyC Unavailable [phone] Encounter Details Date Type Department Care Team (Late st Contact Info) Description 06/08/2022 Results Notification [facility] [address] [place] [address] Ricardo Villeda MD Social History Tobacco Use [...] Assessment Author Status No 08/10/2020 8:08 AM CORRAL BOSS Activ e * RETIRED Are you blind [...] original note were not included. Contacted by [email or web address] about recurrent Non-sustained ventricular tachycardia (NSVT) Patient not on beta amelia/CCB/antiarrhythmics Structurally normal heart otherwise Not seen by EP - awaiting Cheko Pulido MD consultation Due to high burden, I have advised the monitoring company to direct the patient to nearest emergency room Ricardo Villeda MD Clinical Cardiac Fusion Analyst [facility] documented in this encounter Plan of Treatment Not on file documented as of this encounter Visit Diagnoses Not on filedocumented in this encounter Additional Health Concerns Infection Onset Date Last Indicated Resolved Time COVID-19 Rule Out 10/10/2023 10/10/2023 10/10/2023 12:25 PM CORRAL BOSS documented as of this encounter Care Teams Client Retention Specialist Relationship Specialty Start Date End Date Tereso Donaldson MD [address] [place] [phone] PCP - General FAMILY PRACTICE 05/18/22 Chalo Thakkar PA [address] [place] [phone] Physician Rebrander PHYSICIAN BOTTOM CEMENTER 10/11/21 Leona Godwin MD [address] [place] [phone] Consulting Physician CARDIOVASCULAR DISEASE 05/18/2205/20 Cheko Pulido MD [address] [place] [address] EP Hvac Instructor CLINICAL CARDIAC ELECTROPHYSIOLOGY 05/30/22 Rigoberto Chinchilla MD [address] [place] [address] INTERVENTIONAL CARDIOLOGY 01/23/2412/06 Mariluz Owens ANP- [address] [place] [phone] Nurse Practitioner NURSE PRACTITIONER ADULT HEALTH 01/23/24 Jayla Ridley PA-C [address] [place] [address] Referring Physician PHYSICIAN BOTTOM CEMENTER 08/29/24 documented as of this encounter
--- OUTSIDE RECORDS SUMMARY | 2025-04-18 09:01 | XMS_ITS | Encounter Summary ---
Author Organization [facility] Address [address] [place] [address] Care Team Providers Care Strategic Partnership Representative Name Role Phone Chalo Thakkar Unavailable [phone] Tereso Donaldson MD Primary Care Provider [phone] Leona Godwin MD Unavailable Unavailabl e Cheko Pulido MD Unavailable + [phone] Rigoberto Chinchilla MD Unavailable [phone] Mariluz Owens ANP-BC Unavailable [phone] Jayla Ridley PA-C Unavailable + [phone] Encounter Details Date Type Department Care Team (Late st Contact Info) Description 08/31/2022 Hospital Orders Only [facility] Lab Pre/Post [address] [place], [place] [address] New Villalobos MD [address] [facility], [address] [place] [address] Social History Tobacco Use Types [...] Coronavirus/COVID-19? No / Unsure 09/03/2022 3:54 PM [place] documented as of this encounter Functional Status * RETIRED Are you deaf or do you have serious difficulty hearing Answer Date of Assessment Author Status No 08/10/2020 8:08 AM [place] Activ e * RETIRED Are you blind [...] Author Status No 05/10/2020 8:42 PM CDT Jhon Garcia R N Active * Because of [...] Rule Out 10/10/2023 10/10/2023 10/10/2023 12:25 PM [place] documented as of this encounter Care Teams Strategic Partnership Representative Relationship Specialty Start Date End Date Tereso Donaldson MD [address] [place] [phone] PCP - General FAMILY PRACTICE 05/18/22 Chalo Thakkar PA [address] [place] [phone] Physician Watch Engineer PHYSICIAN DRAFTER MARINE 10/11/21 Leona Godwin MD [address] [place] [phone] Consulting Physician CARDIOVASCULAR DISEASE 05/18/2205/20 Cheko Pulido MD [address] [place] [address] EP Fiber Technician CLINICAL CARDIAC ELECTROPHYSIOLOGY 05/30/22 Rigoberto Chinchilla MD [address] [place] [address] INTERVENTIONAL CARDIOLOGY 01/23/2412/06 Mariluz Owens [facility]- [address] [place] [address] Nurse Practitioner NURSE PRACTITIONER ADULT HEALTH 01/23/24 Jayla Ridley PA-C [address] [place] [phone] Referring Physician PHYSICIAN DRAFTER MARINE 08/29/24 documented as of this encounter
--- OUTSIDE RECORDS SUMMARY | 2025-04-18 09:01 | XMS_ITS | Clinical Summary ---
Author Organization [facility] Address [address] [place] [address] Care Team Providers Care Alumni Relations Manager Name Role Phone Chalo Larios Unavailable [phone] Tereso Donaldson MD Primary Care Provider [phone] Cheko Pulido MD Unavailable + [phone] Mariluz [...] PVCs 09/16/2023 ESRD (end stage renal disease) ([facility]) 05/10/2020 Hyperparathyroidism due to e nd stage renal disease on dialysis ([facility]) 04/27/2020 Acquired hypothyroidism 04/27/2020 Elevated troponin 02/23/2020 Acute renal failure (ARF) 02/23/2020 Palpitations 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HHS/HCC) Lupus Mitral regurgitation Encounters Date Type Department Care Team Description 02/16/2025 11:57 AM CDT - 02/16/2025 12:29 PM CDT Emergency [facility] [address] [place] [address] Jin Alejandro FNP Ear Problem Discharge Disposition: Home or Self Care (Routine Discharge) 02/16/2025 Travel 02/06/2025 10:45 AM CDT - 02/06/2025 12:49 PM CDT Emergency [facility] [address] [place] [address] Mert Cifuentes MD Hearing Problem Discharge Disposition: [...] this topic Medical Devices Implanted Type Area Director Of Compliance Device Identifier Shelf Expiration Date Model / Serial / Lot Cook Tornado Left Forearm Vein-12/19/2020 Implanted:Qty: 1 on 12/19/2020 by Rafa Villagomez MD Coil Arm [employer] 08/11/2024 [id number] / / [id number] Cook Tornado Left Forearm- 021 Implanted:Qty: 1 on 12/19/2020 by Rafa Villagomez MD Coil Left: Arm [employer] 04/17/2022 [id number] / / [id number] Cook Tornado Left Forearm Vein-12/19/2020 Implanted:Qty: 1 on 12/19/2020 by Rafa Villagomez MD Coil Left: Arm [employer] 08/18/2024 [id number] / / [id number] Daron Torando Left Forearm Vein-12/19/2020 Implanted:Qty: 1 on 12/19/2020 by Rafa Villagomez MD Coil Left: Arm [employer] - A General Assembly 06/24/2023 [id number] / / [id number] Procedures Procedure Name Priority Date/Time Associated Diagnosis Comments BONE DENSITY/DEXA Routine 08/15/2022 7:0 7 PM [employer]ING M[employer] SET UP OPERATOR VERTICAL Postmenopausal MG SCREENING W BRANDEN BRYANT DIGI Routine 08/15/2022 3:04 PM B[employer]ING [employer]ILL SET UP OPERATOR VERTICAL Visit for screening mammogram COLONOSCOPY 09/08/2021 10:19 AM [place] SET UP OPERATOR VERTICAL OCCULT BLOOD, FECES STAT 04/22/2021 1 :32 PM CDT from Last 3 Months or Most Recently Relevant to Health Maintenance Results * BONE DENSITY/DEXA (08/15/2022 7:07 PM BORING MILL SET UP OPERATOR VERTICAL) Anatomical Region Laterality Modality Bone Bone Density 08/15/2022 7:07 PM BORING MILL SET UP OPERATOR VERTICAL Impressions 08/15/2022 7:08 PM BORING MILL SET UP OPERATOR VERTICAL Impression: Osteoporosis. Ordered By: CHALO LARIOS Interpreted By: Malvin Hart DO, 08/15/2022 7:07 PM Narrative 08/15/2022 7:08 PM BORING MILL SET UP OPERATOR VERTICAL Examination: DEXA Bone densitometry Clinical history: Postmenopausal. [...] W BRANDEN BRYANT DIGI (08/15/2022 3:04 PM BORING MILL SET UP OPERATOR VERTICAL) Anatomical Region Laterality Modality Breast Bilateral Mammography 08/20/2022 4:46 PM BORING MILL SET UP OPERATOR VERTICAL Narrative 08/20/2022 4:48 PM BORING MILL SET UP OPERATOR VERTICAL Examination: Digital screening mammogram with CAD. Clinical [...] Final Result * COLONOSCOPY (09/08/2021 10:19 AM BORING MILL SET UP OPERATOR VERTICAL) Yusuf Bill MD GI PROCEDURE ORDERABLES Final Result * OCCULT BLOOD, FECES (04/22/2021 1:32 PM CDT) OCCULT BLOOD FECAL NEGATIVE NEGATIVE 04/22/2021 1:43 PM CDT [facility] STOOL SPECIMEN / Unknown 04/22/2021 1:32 PM CDT Dejon Cheung MD BODY FLUIDS AND STOOLS ORDERABL ES Final Result [facility] [address] [place] [address], from Last 3 Months or Most Recently Relevant to Health Maintenance Insurance Member Subscriber Plan / Payer (Ef fective 2022-Present) Name:Farzaneh Lopez Relation to Subscriber:Self Name:Jessica Farzaneh Nikki Payer ID:Not on file Group ID:Not on file Type:Not on file Address: [address] [facility] MEDICAID Advance Directives * Full Code (Latest Code Status on File) Date Activated Date Inactivated Comments 12/25/2024 3:56 PM 12/27/2024 2:26 PM * Full Code Date Activated Date Inactivated Comments 05/11/2020 2:23 AM 05/11/2020 5:03 PM * Full Code Date Activated Date Inactivated Comments 02/23/2020 5:34 PM 03/03/2020 7:30 PM Care Teams Alumni Relations Manager Relationship Specialty Start Date End Date Tereso Donaldson MD [address] [place] [phone] PCP - General FAMILY PRACTICE 05/18/22 Chalo Larios PA [address] [place] [phone] Physician Aircraft Pilot PHYSICIAN HORSE TREKKING GUIDE 10/11/21 Cheko Pulido MD [address] [place] [address] EP Procurement Representative CLINICAL CARDIAC ELECTROPHYSIOLOGY 05/30/22 Mariluz Owens, [facility]- [address] [place] [address] Nurse Practitioner NURSE PRACTITIONER ADULT HEALTH 01/23/24 Jayla Ridley PA-C [address] [place] [address] Referring Physician PHYSICIAN HORSE TREKKING GUIDE 08/29/24
--- OUTSIDE RECORDS SUMMARY | 2025-04-18 09:01 | XMS_ITS | Clinical Summary ---
Author Organization [facility] Address [address] [facility], [address] [address] Phone Care Team Providers Care Shop Tech Name Role Phone Natty Aviles MD Primary Care Provider [phone] Allergies Active Allergy Reactions Criticality Noted Date [...] patient's age to complete this topic [facility] Care Teams Shop Tech Relationship Specialty Start Date End Date Natty Aviles MD [address] [place] [address] PCP - General Family Medicine 04/08/18
[2025-04-18 09:05] LABS: Alanine Aminotransferase 11 U/L (6-35); Albumin Level 3.3 g/dL (3.5-5.1); Alkaline Phosphatase 106 U/L (38-126); Anion Gap 5 mmol/L (4-12); Aspartate Amino Transferase 25 U/L (14-36); Bilirubin,Total 0.5 mg/dL (0.2-1.3); Blood Urea Nitrogen 26 mg/dL (7-17); Calcium 8.5 mg/dL (8.4-10.2); Carbon Dioxide 29 mmol/L (22-30); Chloride 104 mmol/L (98-107); Estimated Glomerular Filt Rate 5; Glucose 92 mg/dL (65-110); Lipase 52 U/L (23-300); Osmolality Calculated 290 mOsm/kg (285-295); Potassium 3.7 mmol/L (3.4-5.0); Sodium 138 mmol/L (137-145); Total Protein 5.9 g/dL (6.3-8.2)
[2025-04-18 09:10] LABS: INR 0.9; Partial Thromboplastin Time 27.6 Sec (23.9-30.70); Prothrombin Time 10.4 Seconds (9.50-12.1)
[2025-04-18 09:16] LABS: Troponin I 0.031 ng/mL (0.000-0.034)
== END 2025-04-18 10:50 | disposition home or self-care (01) ==
PROVIDERS: Emergency Provider Emergency Medicine; PCP Physician Assistant
DX: K57.92 Diverticulitis of intestine, part unspecified, without perforation or abscess without bleeding (principal); N18.6 End stage renal disease; E03.9 Hypothyroidism, unspecified; Z87.891 Personal history of nicotine dependence
CPT/HCPCS: 36415; 71046; 74176; 80053; 83690; 84484; 85025; 85610; 85730; 93005; 99284

== ENCOUNTER 2025-05-14 08:00 | Emergency (ER) | payer MEDICARE, MEDICAID, SELFPAY ==
[2025-05-14] VITALS (8 sets, daily range): BP systolic 110–119; BP diastolic 52–62; PULSE 94; RESP 16; TEMP 36.3; O2SAT 93–100
--- NOTE | ~2025-05-14 | CT_ITS ---
EXAMINATION: CT abdomen pelvis wo con DATE: 05/14/2025 08:38 INDICATION: Left upper quadrant pain. Diverticulitis. Nausea and vomiting for 3 days. TECHNIQUE: Computed tomography (CT) of the abdomen and pelvis was performed without intravenous contr ast. The dose-length product was 279.15 mGy-cm. Automated exposure control and iterative reconstructi on technique were employed. COMPARISON: CT dated 04/18/2025. FINDINGS: Lung bases unremarkable. Heart size normal. No significant pleural or pericardial effusion. There is mild segmental thickening of the descending, sigmoid colon, and rectum consistent with coli tis, most likely infectious or inflammatory. No evidence for perforation or abscess. Gallbladder is c ontracted. The liver, spleen, adrenal glands are unremarkable. Kidneys are severely atrophic with sma ll bilateral cysts. Normal appendix. IMPRESSION: 1. Persistent abnormal thickening of the descending colon, sigmoid colon and rectum with mild surroun ding mesenteric infiltration, consistent with colitis, most likely infectious/inflammatory. 2: Severe renal atrophy. Reviewed, dictated and finalized at location A. IMPRESSION: 1. Persistent abnormal thickening of the descending colon, sigmoid colon and re ctum with mild surrounding mesenteric infiltration, consistent with colitis, mo st likely infectious/inflammatory. 2: Severe renal atrophy.
--- OUTSIDE RECORDS SUMMARY | 2025-05-14 08:13 | XMS_ITS | Encounter Summary ---
Author Organization [facility] Address Formerly [facility], [id number] [place] [address] Care Team Providers Care Jetting Machine Operator Name Role Phone Chalo Thakkar Unavailable [phone] Tereso Donaldson MD Primary Care Provider [phone] Leona Godwin MD Unavailable Unavailabl e Cheko Pulido MD Unavailable [phone] Rigoberto Chinchilla MD Unavailable [phone] Mariluz Owens ANP-BC Unavailable [phone] Jayla RidleyC Unavailable [phone] Encounter Details Date Type Department Care Team (Late st Contact Info) Description 06/08/2022 Results Notification [facility]eld [address] [place] [address] Ricardo Villeda MD Social History Tobacco Use [...] Assessment Author Status No 08/10/2020 8:08 AM TREE TRIMMER HELPER Activ e * RETIRED Are you blind [...] original note were not included. Contacted by [employer] about recurrent Non-sustained ventricular tachycardia (NSVT) Patient not on beta amelia/CCB/antiarrhythmics Structurally normal heart otherwise Not seen by EP - awaiting Cheko Pulido MD consultation Due to high burden, I have advised the monitoring company to direct the patient to nearest emergency room Ricardo Villeda MD Clinical Cardiac Rubber Production Machine Operator [facility] documented in this encounter Plan of Treatment Upcoming Encounters Date Type Department Care Team (Late st Contact Info) Description 05/20/2025 3:[address] [address] [place] [address] Tereso Donaldson MD [address] [place] [phone] documented as of this encounter Visit Diagnoses Not on filedocumented in this encounter Additional Health Concerns Infection Onset Date Last Indicated Resolved Time COVID-19 Rule Out 10/10/2023 10/10/2023 10/10/2023 12:25 PM TREE TRIMMER HELPER documented as of this encounter Care Teams Jetting Machine Operator Relationship Specialty Start Date End Date Tereso Donaldson MD [address] [place] [phone] PCP - General FAMILY PRACTICE 05/18/22 Chalo Thakkar PA [address] [place] [phone] Physician Sales Agent [employer] PHYSICIAN SERVOMECHANISM DESIGNER 10/11/21 Leona Godwin MD [address] [place] [phone] Consulting Physician CARDIOVASCULAR DISEASE 05/18/2205/20 Cheko Pulido MD [address] [place], [place] [phone] EP Meteorological Engineer CLINICAL CARDIAC ELECTROPHYSIOLOGY 05/30/22 Rigoberto Chinchilla MD [address] [place], [place] [address] INTERVENTIONAL CARDIOLOGY 01/23/2412/06 Mariluz Owens [facility] [place], [place] [phone] Nurse Practitioner NURSE PRACTITIONER ADULT HEALTH 01/23/24 Jayla Ridley PA-C [address] [place] [address] Referring Physician PHYSICIAN SERVOMECHANISM DESIGNER 08/29/24 documented as of this encounter
--- OUTSIDE RECORDS SUMMARY | 2025-05-14 08:15 | XMS_ITS | Clinical Summary ---
Author Organization [facility] Address [address] [facility], [address] [phone] Phone Care Team Providers Care Fitting Room Attendant Name Role Phone Natty Aviles MD Primary Care Provider [phone] Allergies Active Allergy Reactions Criticality Noted Date [...] patient's age to complete this topic Insurance [facility] Care Teams Fitting Room Attendant Relationship Specialty Start Date End Date Natty Aviles MD [address] [place] [address] PCP - General Family Medicine 04/08/18
--- OUTSIDE RECORDS SUMMARY | 2025-05-14 08:15 | XMS_ITS | Encounter Summary ---
Author Organization [facility] Address [address] [place] [address] Care Team Providers Care Opticianry Teacher Name Role Phone Chalo Thakkar Unavailable [phone] Tereso Donaldson MD Primary Care Provider [phone] Leona Godwin MD Unavailable Unavailabl e Cheko Pulido MD Unavailable [phone] Rigoberto Chinchilla MD Unavailable [phone] Mariluz Owens ANP-BC Unavailable [phone] Jayla Ridley PA-C Unavailable [phone] Encounter Details Date Type Department Care Team (Late st Contact Info) Description 08/31/2022 Hospital Orders Only [facility] Pre/Post [address] [place], [place] [address] New Villalobos MD [address] [facility], [address] [place] [address] Social History Tobacco Use Types [...] In the last 10 days, have santhosh wallace been in contact with someone who was confirmed or suspected to have Coronavirus/COVID-19? No / Unsure 09/03/2022 3:54 PM [facility] documented as of this encounter Functional Status * RETIRED Are you deaf or do you have serious difficulty hearing Answer Date of Assessment Author Status No 08/10/2020 8:08 AM [facility] Activ e * RETIRED Are you blind [...] Info) Description 05/20/2025 3:00 PM CDT Appointment [facility] [address] [facility] [place] [address] Tereso Donaldson MD [address] [place] [phone] documented as of this encounter Visit Diagnoses Not on filedocumented in this encounter Additional Health Concerns Infection Onset Date Last Indicated Resolved Time COVID-19 Rule Out 10/10/2023 10/10/2023 10/10/2023 12:25 PM [facility] documented as of this encounter Care Teams Opticianry Teacher Relationship Specialty Start Date End Date Tereso Donaldson MD [address] [place] [phone] PCP - General FAMILY PRACTICE 05/18/22 Chalo Thakkar PA [address] [place] [phone] Physician Seniour Insight Manager PHYSICIAN FINANCIAL PROJECT MANAGER 10/11/21 Leona Godwin MD [address] [place] [phone] Consulting Physician CARDIOVASCULAR DISEASE 05/18/2205/20 Cheko Pulido MD [address] [place] [address] EP Emg Technician CLINICAL CARDIAC ELECTROPHYSIOLOGY 05/30/22 Rigoberto Chinchilla MD [address] [place] [address] INTERVENTIONAL CARDIOLOGY 01/23/2412/06 Mariluz Owens ANP- [address] [place] [address] Nurse Practitioner NURSE PRACTITIONER ADULT HEALTH 01/23/24 Jayla Ridley PA-C [address] [place] [address] Referring Physician PHYSICIAN FINANCIAL PROJECT MANAGER 08/29/24 documented as of this encounter
--- OUTSIDE RECORDS SUMMARY | 2025-05-14 08:15 | XMS_ITS | Clinical Summary ---
Author Organization [facility] Address [address] [place] [address] Care Team Providers Care Pickle Maker Name Role Phone Chalo Thakkar Unavailable [phone] Tereso Donaldson MD Primary Care Provider [phone] Cheko Pulido MD Unavailable [phone] Mariluz Owens ANP-BC Unavailable +- Jayla Ridley PA-C Unavailable [phone] Allergies [...] 1 tablet by mouth daily. 3 Active metroNIDAZOLE (FLAGYL) 500 MG tablet take 1 tablet by mouth three times daily for 10 days 5 Active cyclobenzaprine (FLEXERIL) 10 MG tablet Take 1 tablet (10 mg total) by mouth 2 (two) times daily as needed for Muscle Spasms. 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 ESRD (end stage renal disease) ([facility]) 05/10/2020 Hyperparathyroidism due to e nd stage renal disease on dialysis ([facility]) 04/27/2020 Acquired hypothyroidism 04/27/2020 Elevated troponin 02/23/2020 Acute renal failure (ARF) 02/23/2020 Palpitations 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[facility]) Lupus Mitral regurgitation Encounters Date Type Department Care Team Description 04/26/2025 3:50 PM CDT - 04/26/2025 5:00 PM CDT Emergency [facility] [address] [place] [address] Anthony Valero MD Hip Pain Discharge Disposition: Home or Self Care (Routine Discharge) 04/26/2025 Travel 02/16/2025 11:57 AM CDT - 02/16/2025 12:29 PM CDT Emergency [facility] [address] [place] [address] Jin Alejandro, HEAD OF MARKETING Ear Problem Discharge Disposition: Home or Self Care (Routine Discharge) 02/16/2025 Travel from Last 3 Months Family History [...] Sign Reading Time Taken Comments Blood Pressure 141/66 04/26/2025 5:00 PM CDT Pulse 69 04/26/2025 4:01 PM CDT Temperature 35.9 C (96.6 F) 04/26/2025 4:01 PM CDT Respiratory Rate 16 04/26/2025 5:00 PM CDT Oxygen Saturation 100% 04/26/2025 5:00 PM CDT Inhaled Oxygen Concentration - - Weight 73.4 kg (161 lb 13.1 oz) 04/26/2025 4:01 PM CDT Height 170.2 cm (5' 7) 04/26/2025 4:01 PM CDT Body Mass Index 25.34 04/26/2025 4:01 PM CDT Plan of Treatment Upcoming Encounters Date Type Department Care Team (Late st Contact Info) Description 05/20/2025 3:00 PM CDT Appointment [facility] [address] [place] [address] Tereso Donaldson MD [address] [place] [phone] Health Maintenance Due Date Last Done Comments [...] this topic Medical Devices Implanted Type Area [employer] Advisor Device Identifier Shelf Expiration Date Model / Serial / Lot Daron Limrob Left Forearm Vein-12/19/2020 Implanted:Qty: 1 on 12/19/2020 by Rafa Villagomez MD Coil Arm [employer] 08/11/2024 [id number] / / [id number] Daron Limna Left Forearm- 021 Implanted:Qty: 1 on 12/19/2020 by Rafa Villagomez MD Coil Left: Arm [employer] 04/17/2022 [id number] / / [id number] Daron Limnado Left Forearm Vein-12/19/2020 Implanted:Qty: 1 on 12/19/2020 by Rafa Villagomez MD Coil Left: Arm [employer] 08/18/2024 [id number] / / [id number] Cook Raphaelando Left Forearm Vein-12/19/2020 Implanted:Qty: 1 on 12/19/2020 by Rafa Villagomez MD Coil Left: Arm [employer] 06/24/2023 [id number] / / [id number] Procedures Procedure Name Priority Date/Time Associated Diagnosis Comments XR PELVIS 1 OR 2 VIEWS STAT 04/26/2025 4:53 PM CDT BONE DENSITY/DEXA Routine 08/15/2022 7:0 7 PM OPERATIONS RESEARCH ENGINEER Postmenopausal MG SCREENING W BRANDEN BRYANT DIGI Routine 08/15/2022 3:04 PM OPERATIONS RESEARCH ENGINEER Visit for screening mammogram COLONOSCOPY 09/08/2021 10:19 AM OPERATIONS RESEARCH ENGINEER OCCULT BLOOD, FECES STAT 04/22/2021 1 :32 PM CDT from Last 3 Months or Most Recently Relevant to Health Maintenance Results * XR PELVIS 1 OR 2 VIEWS (04/26/2025 4:53 PM CDT) Anatomical Region Laterality Modality Pelvis Radiographic Gladys ging 04/26/2025 5:22 PM CDT Impressions 04/26/2025 5:24 PM CDT IMPRESSION: 1. No acute osseous abnormalities identified. 2. Mild bilateral hip osteoarthritis. Ordered By: ANTHONY VALERO Interpreted By: Malvin Hart DO, 04/26/2025 5:22 PM Narrative 04/26/2025 5:24 PM CDT [address] [place] [address] EXAMINATION: XR PELVIS 1 OR 2 VIEWS HISTORY: Right hip pain for several days. No known injury. COMPARISON: None. TECHNIQUE: AP view of the pelvis. FINDINGS: No evidence of acute fracture or dislocation. No evidence of osteolysis. Alignment is maintained. Mild bilateral hip osteoarthritis. The pubic symphysis and SI joints remain aligned. There are degenerative changes within the lumbar spine. If the patient's symptoms persist or worsen over time, further evaluation with MRI would be recommended. Procedure Note Malvin Hart DO - 04/26/[address] [place] [address] EXAMINATION: XR PELVIS 1 OR 2 VIEWS HISTORY: Right hip pain for several days. No known injury. COMPARISON: None. TECHNIQUE: AP view of the pelvis. FINDINGS: No evidence of acute fracture or dislocation. No evidence of osteolysis.Alignment is maintained. Mild bilateral hip osteoarthritis. The pubicsymphysis and SI joints remain aligned. There are degenerative changeswithin the lumbar spine. If the patient's symptoms persist or worsen overtime, further evaluation with MRI would be recommended. IMPRESSION: 1. No acute osseous abnormalities identified. 2. Mild bilateral hip osteoarthritis. Ordered By: ANTHONY VALERO Interpreted By: Malvin Hart DO, 04/26/2025 5:22 PM us Anthony Valero MD GENERAL IMAGING Final Result * BONE DENSITY/DEXA (08/15/2022 7:07 PM OPERATIONS RESEARCH ENGINEER) Anatomical Region Laterality Modality Bone Bone Density 08/15/2022 7:07 PM OPERATIONS RESEARCH ENGINEER Impressions 08/15/2022 7:08 PM OPERATIONS RESEARCH ENGINEER Impression: Osteoporosis. Ordered By: CHALO K MANTHEI Interpreted By: Malvin Hart DO, 08/15/2022 7:07 PM Narrative 08/15/2022 7:08 PM OPERATIONS RESEARCH ENGINEER Examination: DEXA Bone densitometry Clinical history: Postmenopausal. [...] clinically indicated. Impression: Osteoporosis. Ordered By: CHALO THAKKAR Interpreted By: Malvin Hart DO, 08/15/2022 7:07 PM Chalo COSME DEXA Final Result * MG SCREENING W BRANDEN BRYANT DIGI (08/15/2022 3:04 PM OPERATIONS RESEARCH ENGINEER) Anatomical Region Laterality Modality Breast Bilateral Mammography 08/20/2022 4:46 PM OPERATIONS RESEARCH ENGINEER Narrative 08/20/2022 4:48 PM OPERATIONS RESEARCH ENGINEER Examination: Digital screening mammogram with CAD. Clinical [...] 2 - BENIGN FINDING(S) Ordered By: CHALO THAKKAR Interpreted By: Keshav Banks MD, 08/20/2022 4:46 PM us Chalo COSME MAMMO Final Result * COLONOSCOPY (09/08/2021 10:19 AM OPERATIONS RESEARCH ENGINEER) Yusuf Bill MD GI PROCEDURE ORDERABLES Final Result * OCCULT BLOOD, FECES (04/22/2021 1:32 PM CDT) OCCULT BLOOD FECAL NEGATIVE NEGATIVE 04/22/2021 1:43 PM CDT [facility] STOOL SPECIMEN / Unknown 04/22/2021 1:32 PM CDT Dejon Cheung MD BODY FLUIDS AND STOOLS ORDERABL ES Final Result [facility] [address] [place] [address], from Last 3 Months or Most Recently Relevant to Health Maintenance Insurance MEDICAID UHC [facility] MEDICAID Advance Directives * Full Code (Latest Code Status on File) Date Activated Date Inactivated Comments 12/25/2024 3:56 PM 12/27/2024 2:26 PM * Full Code Date Activated Date Inactivated Comments 05/11/2020 2:23 AM 05/11/2020 5:03 PM * Full Code Date Activated Date Inactivated Comments 02/23/2020 5:34 PM 03/03/2020 7:30 PM Care Teams Pickle Maker Relationship Specialty Start Date End Date Tereso Donaldson MD [address] [place] [phone] PCP - General FAMILY PRACTICE 05/18/22 Chalo Thakkar PA [address] [place] [phone] Physician Chronic Condition Nurse PHYSICIAN LENS GENERATING MACHINE TENDER 10/11/21 Cheko Pulido MD [address] [place] [id number] EP Haunted History Tour Guide CLINICAL CARDIAC ELECTROPHYSIOLOGY 05/30/22 Mariluz Owens ANP-BC [address] [place] [phone] Nurse Practitioner NURSE PRACTITIONER ADULT HEALTH 01/23/24 Jayla Ridley PA-C [address] [place] [address] Referring Physician PHYSICIAN LENS GENERATING MACHINE TENDER 08/29/24
--- NOTE | 2025-05-14 08:20 | ED_ITS ---
HPI - Nausea/Vomiting/Diarrhea General Chief complaint: Nausea/Vomiting/Diarrhea Stated complaint: diarrhea Time Seen by Provider: 05/14/25 08:18 Source: patient and family Mode of arrival: ambulatory Limitations: no limitations History of Present Illness HPI Narrative: patient is a 75-year-old female with longstanding hearing impairment and diverticulitis last month using Cipro and Flagyl here with some diarrhea for 2 days. She has loose stools but no blood. No nausea or vomiting. No abdominal pain per se but when you examine it is tender in the upper abdomen. also associated thrush and ringing of the ears bilateral. colonoscopy 2024 in February with 2 polyps. patient does dialysis with an AV fistula/graft of the left upper extremity and she is due today for dialysis. Dialysis is in 4 hours (patient claims she does not want to go today). MD elicited complaint: diarrhea Pertinent past history: other ( Diverticulitis, hearing impairment) Onset (ago): day(s) ( Two) Description of vomiting: none Description of diarrhea: watery and lose Associated nausea: No Associated abdominal pain: Yes ( Only on palpation) Location of pain: LUQ and RUQ Radiation: does not radiate Pain consistency: intermittent Severity: mild Pain scale (0-10): 1 Quality: cramping Exacerbating factors: other ( palpation) Relieving factors: none Context: recent antibiotic use Associated symptoms: tinnitus Treatment prior to arrival: none Related Data Home Medications ?Medication ?Instructions ?Recorded ?Confirmed ?Last Taken ?Type aspirin 81 mg tablet,delayed 81 mg PO DAILY 07/12/20 02/23/25 Unknown History release calcium carbonate (Tums) 200 mg PO BID 01/14/24 02/23/25 Unknown History levothyroxine 100 mcg tablet 125 mcg PO DAILY 01/14/24 02/23/25 Unknown History Allergies Allergy/AdvReac Type Severity Reaction Status Date / Time nylon Allergy Intermediate Rash Verified 05/14/25 09:19 penicillin G Allergy Intermediate Rash Verified 05/14/25 09:19 Sulfa (Sulfonamide Allergy Rash Verified 05/14/25 09:19 Antibiotics) Review of Systems 2 Review of Systems: All systems reviewed & are unremarkable except as noted in HPI and below Constitutional: Constitutional: Reports no additional constitutional complaints Eyes: Eyes: Reports no additional eye complaints ENT: Reports system reviewed and no additional complaints, except as documented Cardiovascular: Cardiovascular: Reports no additional cardiovascular complaints Respiratory: Respiratory: Reports no additional respiratory complaints Gastrointestinal: Gastrointestinal: Reports no additional gastrointestinal complaints Genitourinary: Genitourinary: Reports no additional female genitourinary complaints Musculoskeletal: Musculoskeletal: Reports no additional musculoskeletal complaints Integumentary/Breasts: Skin/Breast: Reports system reviewed and no additional complaints, except as docu Neurologic: Reports system reviewed and no additional complaints, except as documented Psychiatric: Psychiatric: Reports no additional psychiatric complaints Endocrine: Endocrine: Reports no additional endocrine complaints Hematologic/Lymphatic: Hematologic/Lymphatic: Reports no additional hematologic/lymphatic complaints Allergic/Immunologic: Allergic/Immunologic: Reports no additional allergic/immunologic complaints [facility] Past Medical History Medical History Hypothyroidism Renal failure Family History Family History Father Hypertension Heart disease Mother Carcinoma of colon Hypertension Social History Social History Social History: Caffeine-daily Smoking status: Former smoker Smoking end date: 10/07/08 Alcohol intake: current Alcohol use details: Occasionally Substance use: never Substance use type: does not use Do You Feel Safe in your Home?: Yes Lack of Transportation: No Lack of Food: Never True Current Housing: Decline to Answer Concerned About Future Housing: Decline to Answer Difficulty Paying Gas/Electric Bills: Decline to Answer Difficulty Paying for Meds: Decline to Answer Currently Unemployed: Decline to Answer Education: Decline to Answer Difficulty w/ Childcare or Family Care: Decline to Answer Exam 2 Const: General: healthy appearing Nutritional Appearance: well nourished Orientation/consciousness: patient oriented x3 Limitations: no limitations Other: Hearing impairment HENMT: Head: normal to inspection Ears: external ears normal F kitty/Nose/Sinus: Normal external nose present Eyes: Conjunctivae: conjunctivae normal Cornea: corneas normal Pupils: E qual, round and reactive pupils present Neck: Neck: normal visual inspection Chest: Chest palpation & inspection: normal inspection of the chest Resp: Effort & Inspection: normal respiratory effort and not labored A uscultation: clear to auscultation bilaterally and no crackles Cardio: Rate: regular rate Rhythm: regular rhythm Heart sounds: no murmurs GI: Inspection: non-distended GI Palp: Yes Soft to palpation, Yes Tenderness to palpation present (GI) ( across upper abdomen on palpation), No Guarding due to palpation present (GI), No Rigid due to palpation, No Hernia present, No Palpable mass present and No Rebound tenderness present A uscultation: normal bowel sounds : General: Yes bladder normal to palpation Back/Spine/Pelvis: Back: no CVA tenderness Skin: General skin exam: normal color Rashes: no rashes Wounds: no wounds Neuro: General: patient oriented x3, moves all extremities and no meningeal signs Extrem: General: normal to inspection Psych: Mental Status: mental status grossly normal Affect: normal affect Attitude: cooperative Course Vital Signs Vital signs: Vital Signs Temperature 36.3 C L 05/14/25 08:00 Pulse Rate 94 05/14/25 08:00 Respiratory Rate 16 05/14/25 08:00 Blood Pressure 111/62 05/14/25 08:00 Pulse Oximetry 99 05/14/25 08:00 Oxygen Delivery Room Air 05/14/25 08:00 Temperature 36.3 C L 05/14/25 08:00 Pulse Rate 94 05/14/25 08:00 Respiratory Rate 16 05/14/25 08:00 Blood Pressure 110/57 L 05/14/25 09:01 Pulse Oximetry 100 05/14/25 09:01 Oxygen Delivery Room Air 05/14/25 08:00 MDM - Nausea/Vomiting/Diarrhea MDM Narrative Medical decision making narrative: patient is a 75-year-old female with diarrhea for 2 days and palpation abdominal pain. We will do a GI workup at this time. No cardiovascular complaints or concerns at this time. Lab Data Attestation: I reviewed the patient's lab results. 05/14/25 08:37 05/14/25 08:37 Labs: Lab Results 05/14/25 Range/Units 08:37 WBC 9.0 (4.8-10.8) K/mm3 RBC 3.56 L (4.20-5.40) M/mm3 Hgb 10.4 L (11.7-13.8) g/dL Hct 33.4 L (35.0-42.0) % MCV 93.8 (78.0-102.0) fL MCH 29.2 (27.0-31.0) pg MCHC 31.1 L (32-36) g/dL RDW 15.1 H (11.6-14.4) % Plt Count 138 L (150-420) K/mm3 MPV 11.6 (9.2-11.8) fl Immature Gran % (Auto) 0.4 H (0.0-0.0) % Neut % (Auto) 69.5 (50.0-70.0) % Lymph % (Auto) 17.8 L (18.0-42.0) % [place] % (Auto) 9.1 (2.0-11.0) % Eos % (Auto) 2.8 (1.0-6.0) % Baso % (Auto) 0.4 (0.0-1.0) % Lymph # (Auto) 1.59 (1.10-4.50) K/mm3 [place] # (Auto) 0.81 (0.10-0.90) K/mm3 Eos # (Auto) 0.25 (0.02-0.50) K/mm3 Baso # (Auto) 0.04 (0.00-0.10) K/mm3 Abs Immat Gran (auto) 0.04 H (0.00-0.00) K/mm3 Absolute Neuts (auto) 6.22 (1.70-7.20) K/mm3 Absolute Nucleated RBC 0.00 (0.00-0.00) K/mm3 Nucleated RBC % 0.0 (0-0.0) % PT 10.4 (9.50-12.1) Seconds INR 0.9 APTT 28.5 (23.9-30.70) Sec Sodium 138 (137-145) mmol/L Potassium 3.7 (3.4-5.0) mmol/L Chloride 103 (98-107) mmol/L Carbon Dioxide 28 (22-30) mmol/L Anion Gap 7 (4-12) mmol/L BUN 33 H (7-17) mg/dL Creatinine 8.55 H (0.7-1.0) mg/dL Estim Creat Clear Calc 5 ml/min Estimated GFR 5 L (59 - ) Glucose 98 (65-110) mg/dL Calculated Osmolality 293 (285-295) mOsm/kg Lactic Acid 1.1 (0.4-2.0) mmol/L Calcium 8.8 (8.4-10.2) mg/dL Total Bilirubin 0.5 (0.2-1.3) mg/dL AST 24 (14-36) U/L ALT 11 (6-35) U/L Alkaline Phosphatase 84 (38-126) U/L Total Protein 6.0 L (6.3-8.2) g/dL Albumin 3.5 (3.5-5.1) g/dL Lipase 55 (23-300) U/L Imaging Data Attestation: I personally reviewed and interpreted this imaging study as follows: Radiologist's impression: CT scan of the abdomen and pelvis shows colitis of the large intestines left side of abdomen and otherwise no acute process Discharge Plan Discharge Clinical Impression: Colitis, End stage kidney disease Patient Disposition: Home Condition: Stable Instructions: Antibiotic Form, Colitis (ED) Additional Instructions: please follow-up with the primary doctor in the next week. Please go to dialysis as scheduled. please take all prescription antibiotics given to resolve your colitis. Patient Language: Wolof Prescriptions: New ciprofloxacin HCl [Cipro] 500 mg tablet 500 mg PO BID 7 Days Qty: 14 0RF metronidazole 500 mg tablet 500 mg PO TID 7 Days Qty: 21 0RF No Action aspirin 81 mg Tablet,Delayed Release (Dr/Ec) 81 mg PO DAILY levothyroxine 100 mcg tablet 125 mcg PO DAILY metronidazole 500 mg tablet 500 mg PO TID 10 Days Qty: 30 0RF ciprofloxacin HCl [Cipro] 250 mg tablet 250 mg PO BID 7 Days Qty: 14 0RF calcium carbonate [Tums] 200 mg calcium (500 mg) tablet,chewable 200 mg PO BID Follow-up/Referrals: Ariane,YADIRA Isabel [Primary Care Provider] - Time of Disposition: 09:23
--- OUTSIDE RECORDS SUMMARY | 2025-05-14 08:40 | XMS_ITS | Encounter Summary ---
Author Organization [facility] Address [facility]ly [facility] [place] [address] Care Team Providers Care Mailroom Supervisor Name Role Phone Chalo Thakkar Unavailable [phone] Tereso Donaldson MD Primary Care Provider [phone] Leona Godwin MD Unavailable Unavailabl e Cheko Pulido MD Unavailable [phone] Rigoberto Chinchilla MD Unavailable [phone] Mariluz Owens ANP-BC Unavailable [phone] Jayla RidleyC Unavailable [phone] Encounter Details Date Type Department Care Team (Late st Contact Info) Description 06/08/2022 Results Notification [facility] [address] [place] [phone] Ricardo Villeda MD Social History Tobacco Use [...] Assessment Author Status No 08/10/2020 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 Contacted by [email or web address] about recurrent Non-sustained ventricular tachycardia (NSVT) Patient not on beta amelia/CCB/antiarrhythmics Structurally normal heart otherwise Not seen by EP - awaiting Cheko Pulido MD consultation Due to high burden, I have advised the monitoring company to direct the patient to nearest emergency room Ricardo Villeda MD Clinical Cardiac [employer] [facility] documented in this encounter Plan of Treatment Upcoming Encounters Date Type Department Care Team (Late st Contact Info) Description 05/20/2025 3:[address] [address] [facility] [place] [address] Tereso Donaldson MD [address] [place] [phone] documented as of this encounter Visit Diagnoses Not on filedocumented in this encounter Additional Health Concerns Infection Onset Date Last Indicated Resolved Time COVID-19 Rule Out 10/10/2023 10/10/2023 10/10/2023 12:25 PM LEAD PAINTER documented as of this encounter Care Teams Mailroom Supervisor Relationship Specialty Start Date End Date Tereso Donaldson MD [address] [place] [phone] PCP - General FAMILY PRACTICE 05/18/22 Chalo Thakkar PA [address] [place] [phone] Physician Butadiene Converter Utility Operator PHYSICIAN MINING MANAGER 10/11/21 Leona Godwin MD [address] [place] [phone] Consulting Physician CARDIOVASCULAR DISEASE 05/18/2205/20 Cheko Pulido MD [address] [place], [place] [address] EP Refrigeration Insulator CLINICAL CARDIAC ELECTROPHYSIOLOGY 05/30/22 Rigoberto Chinchilla MD [address] [place], [place] [address] INTERVENTIONAL CARDIOLOGY 01/23/2412/06 Mariluz Owens ANP- [facility] [place], [place] [phone] Nurse Practitioner NURSE PRACTITIONER ADULT HEALTH 01/23/24 Jayla Ridley PA-C [address] [place] [address] Referring Physician PHYSICIAN MINING MANAGER 08/29/24 documented as of this encounter
[2025-05-14 08:41] LABS: Hematocrit 33.4 % (35.0-42.0); Hemoglobin 10.4 g/dL (11.7-13.8); Immature Granulocyte Percent A 0.4 % (0.0-0.0); Lymphocytes Absolute Auto 1.59 K/mm3 (1.10-4.50); Mean Corpuscular HGB Conc 31.1 g/dL (32-36); Mean Corpuscular Hemoglobin 29.2 pg (27.0-31.0); Mean Corpuscular Volume 93.8 fL (78.0-102.0); Nucleated Red Blood Cells Absolute Auto 0.00 K/mm3 (0.00-0.00); Nucleated Red Blood Cells Perc 0.0 % (0-0.0); Platelet Count Result 138 K/mm3 (150-420); Red Blood Count 3.56 M/mm3 (4.20-5.40); White Blood Count 9.0 K/mm3 (4.8-10.8)
--- OUTSIDE RECORDS SUMMARY | 2025-05-14 08:42 | XMS_ITS | Encounter Summary ---
Author Organization [facility] Address [address] [place] [address] Care Team Providers Care Director Of Materials Management Name Role Phone Chalo Thakkar Unavailable [phone] Tereso Donaldson MD Primary Care Provider [phone] Leona Godwin MD Unavailable Unavailabl e Cheko Pulido MD Unavailable [phone] Rigoberto Chinchilla MD Unavailable [phone] Mariluz Owens ANP-BC Unavailable [phone] Jayla Ridley PA-C Unavailable [phone] Encounter Details Date Type Department Care Team (Late st Contact Info) Description 08/31/2022 Hospital Orders Only [facility] Pre/Post [address] [place], [place] [address] New Villalobos MD [address] [facility], [address] [place] [address] Social History Tobacco Use Types [...] Coronavirus/COVID-19? 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 Are you blind [...] Info) Description 05/20/2025 3:00 PM CDT Appointment [facility] [address] [facility] [place] [address] Tereso Donaldson MD [address] [place] [phone] documented as of this encounter Visit Diagnoses Not on filedocumented in this encounter Additional Health Concerns Infection Onset Date Last Indicated Resolved Time COVID-19 Rule Out 10/10/2023 10/10/2023 10/10/2023 12:25 PM FLAT BED OPERATOR documented as of this encounter Care Teams Director Of Materials Management Relationship Specialty Start Date End Date Tereso Donaldson MD [address] [place] [phone] PCP - General FAMILY PRACTICE 05/18/22 Chalo Thakkar PA [address] [place] [phone] Physician Building Services Technician PHYSICIAN FACULTY INSTRUCTOR 10/11/21 Leona Godwin MD [address] [place] [phone] Consulting Physician CARDIOVASCULAR DISEASE 05/18/2205/20 Cheko Pulido MD [address] [place] [address] EP Feather Edger CLINICAL CARDIAC ELECTROPHYSIOLOGY 05/30/22 Rigoberto Chinchilla MD [address] [place] [address] INTERVENTIONAL CARDIOLOGY 01/23/2412/06 Mariluz Owens ANP- [address] [place] [address] Nurse Practitioner NURSE PRACTITIONER ADULT HEALTH 01/23/24 Jayla Ridley PA-C [address] [place] [address] Referring Physician PHYSICIAN FACULTY INSTRUCTOR 08/29/24 documented as of this encounter
--- OUTSIDE RECORDS SUMMARY | 2025-05-14 08:42 | XMS_ITS | Clinical Summary ---
Author Organization [facility] Address [address] [place] [address] Care Team Providers Care Proposal Engineer Name Role Phone Chalo Thakkar Unavailable [phone] Tereso Donaldson MD Primary Care Provider [phone] Cheko Pulido MD Unavailable + [phone] Mariluz [...] PVCs 09/16/2023 ESRD (end stage renal disease) ([facility]) 05/10/2020 Hyperparathyroidism due to e nd stage renal disease on dialysis ([facility]) 04/27/2020 Acquired hypothyroidism 04/27/2020 Elevated troponin 02/23/2020 Acute renal failure (ARF) 02/23/2020 Palpitations 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[facility]) Lupus Mitral regurgitation Encounters Date Type Department Care Team Description 04/26/2025 3:50 PM CDT - 04/26/2025 5:00 PM CDT Emergency [facility] [address] [facility] [place] [address] Anthony Valero MD Hip Pain Discharge Disposition: Home or Self Care (Routine Discharge) 04/26/2025 Travel 02/16/2025 11:57 AM CDT - 02/16/2025 12:29 PM CDT Emergency [facility] [address] [place] [address] Jin Alejandro, PLUMBER'S ASSISTANT Ear Problem Discharge Disposition: Home or Self [...] Info) Description 05/20/2025 3:00 PM CDT Appointment [facility] [address] [facility] [place] [address] Tereso Donaldson MD [address] [place] [phone] Health Maintenance Due Date Last Done [...] this topic Medical Devices Implanted Type Area [employer] Crew Boss Device Identifier Shelf Expiration Date Model / Serial / Lot Daron Limrob Left Forearm Vein-12/19/2020 Implanted:Qty: 1 on 12/19/2020 by Rafa Villagomez MD Coil Arm [employer] 08/11/2024 [id number] / / [id number] Daron Limna Left Forearm- 021 Implanted:Qty: 1 on 12/19/2020 by Rafa Villagomez MD Coil Left: Arm [employer] 04/17/2022 [id number] / / [id number] Daron Limnado Left Forearm Vein-12/19/2020 Implanted:Qty: 1 on 12/19/2020 by Rafa Villagomez MD Coil Left: Arm [employer] 08/18/2024 [id number] / / [id number] Cook Raphaelando Left Forearm Vein-12/19/2020 Implanted:Qty: 1 on 12/19/2020 by Rafa Villagomez MD Coil Left: Arm [employer] 06/24/2023 [id number] / / [id number] Procedures Procedure Name Priority Date/Time Associated Diagnosis Comments XR PELVIS 1 OR 2 VIEWS STAT 04/26/2025 4:53 PM CDT BONE DENSITY/DEXA Routine 08/15/2022 7:0 7 PM DIRECTOR OF EMERGENCY NURSING Postmenopausal MG SCREENING W BRANDEN BRYANT DIGI Routine 08/15/2022 3:04 PM DIRECTOR OF EMERGENCY NURSING Visit for screening mammogram COLONOSCOPY 09/08/2021 10:19 AM DIRECTOR OF EMERGENCY NURSING OCCULT BLOOD, FECES STAT 04/22/2021 1 :32 [...] 5:22 PM Narrative 04/26/2025 5:24 PM CDT [address] [place] [id number] EXAMINATION: XR PELVIS 1 OR 2 VIEWS [...] Procedure Note Malvin Hart DO - 04/26/[address] [place] [id number] EXAMINATION: XR PELVIS 1 OR 2 VIEWS [...] Result * BONE DENSITY/DEXA (08/15/2022 7:07 PM DIRECTOR OF EMERGENCY NURSING) Anatomical Region Laterality Modality Bone Bone Density 08/15/2022 7:07 PM DIRECTOR OF EMERGENCY NURSING Impressions 08/15/2022 7:08 PM DIRECTOR OF EMERGENCY NURSING Impression: Osteoporosis. Ordered By: CHALO K MANTHEI Interpreted By: Malvin Hart DO, 08/15/2022 7:07 PM Narrative 08/15/2022 7:08 PM DIRECTOR OF EMERGENCY NURSING Examination: DEXA Bone densitometry Clinical history: Postmenopausal. [...] W BRANDEN BRYANT DIGI (08/15/2022 3:04 PM DIRECTOR OF EMERGENCY NURSING) Anatomical Region Laterality Modality Breast Bilateral Mammography 08/20/2022 4:46 PM DIRECTOR OF EMERGENCY NURSING Narrative 08/20/2022 4:48 PM DIRECTOR OF EMERGENCY NURSING Examination: Digital screening mammogram with CAD. Clinical [...] Final Result * COLONOSCOPY (09/08/2021 10:19 AM DIRECTOR OF EMERGENCY NURSING) Yusuf Bill MD GI PROCEDURE ORDERABLES Final Result * OCCULT BLOOD, FECES (04/22/2021 1:32 PM CDT) OCCULT BLOOD FECAL NEGATIVE NEGATIVE 04/22/2021 1:43 PM CDT [facility] STOOL SPECIMEN / Unknown 04/22/2021 1:32 PM CDT Dejon Cheung MD BODY FLUIDS AND STOOLS ORDERABL ES Final Result [facility] [address] [place] [address], from Last 3 Months or Most Recently Relevant to Health Maintenance Insurance MEDICAID UHC [facility] MEDICAID Advance Directives * Full Code (Latest Code Status on File) Date Activated Date Inactivated Comments 12/25/2024 3:56 PM 12/27/2024 2:26 PM * Full Code Date Activated Date Inactivated Comments 05/11/2020 2:23 AM 05/11/2020 5:03 PM * Full Code Date Activated Date Inactivated Comments 02/23/2020 5:34 PM 03/03/2020 7:30 PM Care Teams Proposal Engineer Relationship Specialty Start Date End Date Tereso Donaldson MD [address] [place] [phone] PCP - General FAMILY PRACTICE 05/18/22 Chalo Thakkar PA [address] [place] [phone] Physician Multi Needle Machine Operator PHYSICIAN PHOSPHORIC ACID SUPERVISOR 10/11/21 Cheko Pulido MD [address] [place] [id number] EP Ski Patroller CLINICAL CARDIAC ELECTROPHYSIOLOGY 05/30/22 Mariluz Oewns ANP-BC [address] [place] [id number] Nurse Practitioner NURSE PRACTITIONER ADULT HEALTH 01/23/24 Jayla Ridley PA-C [address] [place] [address] Referring Physician PHYSICIAN PHOSPHORIC ACID SUPERVISOR 08/29/24
--- OUTSIDE RECORDS SUMMARY | 2025-05-14 08:42 | XMS_ITS | Clinical Summary ---
Author Organization [facility] Address [address] [facility], [address] [phone] Phone Care Team Providers Care Salesperson Men'S Hats Name Role Phone Natty Aviles MD Primary Care Provider [phone] Allergies Active Allergy Reactions Criticality Noted Date [...] patient's age to complete this topic Insurance [facility] Care Teams Salesperson Men'S Hats Relationship Specialty Start Date End Date Natty Aviles MD [address] [place] [address] PCP - General Family Medicine 04/08/18
[2025-05-14 08:54] LABS: Alanine Aminotransferase 11 U/L (6-35); Albumin Level 3.5 g/dL (3.5-5.1); Alkaline Phosphatase 84 U/L (38-126); Anion Gap 7 mmol/L (4-12); Aspartate Amino Transferase 24 U/L (14-36); Bilirubin,Total 0.5 mg/dL (0.2-1.3); Blood Urea Nitrogen 33 mg/dL (7-17); Calcium 8.8 mg/dL (8.4-10.2); Carbon Dioxide 28 mmol/L (22-30); Chloride 103 mmol/L (98-107); Estimated CRCL calculation 5 ml/min; Estimated Glomerular Filt Rate 5; Glucose 98 mg/dL (65-110); Lipase 55 U/L (23-300); Osmolality Calculated 293 mOsm/kg (285-295); Potassium 3.7 mmol/L (3.4-5.0); Sodium 138 mmol/L (137-145); Total Protein 6.0 g/dL (6.3-8.2)
[2025-05-14 08:57] LABS: INR 0.9; Partial Thromboplastin Time 28.5 Sec (23.9-30.70); Prothrombin Time 10.4 Seconds (9.50-12.1)
== END 2025-05-14 09:27 | disposition home or self-care (01) ==
PROVIDERS: Emergency Provider Emergency Medicine; PCP Physician Assistant
DX: N18.6 End stage renal disease (principal); K52.9 Noninfective gastroenteritis and colitis, unspecified; H93.19 Tinnitus, unspecified ear; E03.9 Hypothyroidism, unspecified; Z87.891 Personal history of nicotine dependence
CPT/HCPCS: 36415; 74176; 80053; 83605; 83690; 85025; 85610; 85730; 99284